=== PATIENT | female | born 1960 | race Caucasian/White ===

== ENCOUNTER → 2018-07-13 | Outpatient (CLI) | payer OTHER ==
[2018-07-13 09:22] LABS: BASO # 0.1 10^3/uL (0.0-0.2); BASO % 0.6 % (0.0-1.0); EOS # 0.1 10^3/uL (0.0-0.50); EOS % 1.2 % (0.0-3.0); HEMATOCRIT 40.1 % (36.0-47.0); HEMOGLOBIN 13.2 g/dl (12.0-15.5); IMMATURE GRANULOCYTE % 0.4 % (0-3.0); LYMPH # 1.6 10^3/uL (1.5-4.5); LYMPH % 16.6 % (24.0-44.0); MEAN CORPUSCULAR HEMOGLOBIN 30.3 pg (27.0-33.0); MEAN CORPUSCULAR HGB CONC 32.9 g/dl (32.0-36.5); MONO # 0.6 10^3/uL (0.0-0.8); MONO % 5.9 % (0.0-5.0); NEUTROPHILS % 75.3 % (36.0-66.0); PLATELET COUNT, AUTOMATED 273 10^3/uL (150-450); RED BLOOD COUNT 4.36 10^6/uL (4.00-5.40); RED CELL DISTRIBUTION WIDTH 15.3 % (11.5-14.5); WHITE BLOOD COUNT 9.3 10^3/uL (4.0-10.0)
[2018-07-13 09:38] LABS: ESTIMATED AVERAGE GLUCOSE 154 MG/DL (60-110)
[2018-07-13 09:48] LABS: ERYTHROCYTE SEDIMENTATION RATE 9 mm/hr (0-30)
[2018-07-13 10:35] LABS: ALBUMIN 3.8 GM/DL (3.2-5.2); ALBUMIN/GLOBULIN RATIO 1.12 (1.00-1.93); ALKALINE PHOSPHATASE 93 U/L (45-117); ALT/SGPT 38 U/L (12-78); ANION GAP 5 MEQ/L (8-16); AST/SGOT 118 U/L (7-37); BILIRUBIN,TOTAL 0.5 MG/DL (0.2-1.0); BLOOD UREA NITROGEN 14 MG/DL (7-18); CALCIUM LEVEL 8.4 MG/DL (8.5-10.1); CARBON DIOXIDE LEVEL 27 MEQ/L (21-32); CHLORIDE LEVEL 106 MEQ/L (98-107); CREATININE FOR GFR 0.63 MG/DL (0.55-1.30); GLOMERULAR FILTRATION RATE > 60.0 (>51); GLUCOSE, FASTING 141 MG/DL (70-100); POTASSIUM SERUM 4.6 MEQ/L (3.5-5.1); RHEUMATOID FACTOR QUANT < 10.0 IU/ML (<15.0); SODIUM LEVEL 138 MEQ/L (136-145); TOTAL PROTEIN 7.2 GM/DL (6.4-8.2)
[2018-07-13 10:57] LABS: FOLATE 16.7 NG/ML; TOTAL 25(OH) VITAMIN D 20.3 NG/ML (30.0-100.0); VITAMIN B12 LEVEL 391 PG/ML
[2018-07-18 09:18] LABS: DRVV SCREEN 39.5 SEC
[2018-07-18 09:30] LABS: PTT LUPUS TYPE ANTICOAG SCREEN 0.9 (0-1.2)
[2018-07-19 00:06] LABS: ANCA-ATYPICAL <1:20 titer (Neg:<1:20); ANTI DOUBLE STRAND-DNA AB 1 IU/mL (0-9); ANTINUCLEAR ANTIBODIES DIRECT Negative (Negative); CERULOPLASMIN 30.2 mg/dL (19.0-39.0); COPPER PLASMA 107 ug/dL (72-166); CYTOPLASMIC NEUTROP AB ANCA-C <1:20 titer (Neg:<1:20); LEAD BLOOD ADULT <1 ug/dL (0-4); Lyme Disease IgG/IgM Antibodie <0.91 ISR (0.00-0.90); Lyme Disease IgM Ab Quantitati <0.80 index (0.00-0.79); MERCURY LEVEL None Detected ug/L (0.0-14.9); PERINUCLEAR AB ANCA-P <1:20 titer (Neg:<1:20); SJOGREN'S ANTI SS-A <0.2 AI (0.0-0.9); SJOGREN'S ANTI SS-B <0.2 AI (0.0-0.9); VITAMIN B1 LEVEL WHOLE BLOOD 132.6 nmol/L (66.5-200.0); VITAMIN B6,PYRIDOXAL PHOSPHATE 7.2 ug/L (2.0-32.8); VITAMIN E(ALPHA TOCOPHEROL) 8.2 mg/L (7.0-25.1); VITAMIN E(GAMMA TOCOPHEROL) 1.9 mg/L (0.5-5.5)
== END ==
LOC: M LAB 08:13
DX: G62.9 Polyneuropathy, unspecified (principal)
CPT/HCPCS: 82525

== ENCOUNTER → 2018-07-18 | Outpatient (CLI) | payer OTHER | LOC: M RAD 06:59 | DX: Z12.31 Encounter for screening mammogram for malignant neoplasm of breast (principal) | CPT/HCPCS: 77067 ==

== ENCOUNTER → 2018-09-02 | Outpatient (CLI) | payer OTHER ==
[~2018-09-02] MED LIST: ABIL1TAB13 PO; ABIL2TAB PO; ANTA250T PO; BENZ200C70 PO; CYCL10TA PO; DEPA500T2 PO; Effexor XR PO; OXYC1TAB23 PO; PAXI20TA3 PO; PRED20TA PO; PRIL40CA PO; TRAZ-160 PO; TRAZ-163 PO; VENL37TA PO; VITA500047 PO; VITA500T53 PO; VITACHTA PO; [UNRECOGNIZED DRUG - OTHER] PO; caltrate PO
[2018-09-02 10:57] LABS: BLOOD UREA NITROGEN 10 MG/DL (7-18); CREATININE FOR GFR 0.75 MG/DL (0.55-1.30); GLOMERULAR FILTRATION RATE > 60.0 (>51)
== END ==
LOC: M LAB 09:29
PROVIDERS: ATTEND Psychiatry & Neurology Neurology
DX: N18.9 Chronic kidney disease, unspecified (principal)

== ENCOUNTER → 2019-02-17 | Outpatient (CLI) | payer OTHER ==
[~2019-02-17] MED LIST changes: -TRAZ-160 PO; +TRAZ-252 PO
[2019-02-17 10:23] LABS: HEMOGLOBIN A1c 8.1 %
[2019-02-17 10:26] LABS: BLOOD UREA NITROGEN 7 MG/DL (7-18); CALCIUM LEVEL 9.3 MG/DL (8.5-10.1); CARBON DIOXIDE LEVEL 31 MEQ/L (21-32); CHLORIDE LEVEL 106 MEQ/L (98-107); CREATININE FOR GFR 0.87 MG/DL (0.55-1.30); GLOMERULAR FILTRATION RATE > 60.0 (>51); GLUCOSE, FASTING 193 MG/DL (70-100); POTASSIUM SERUM 4.4 MEQ/L (3.5-5.1); SODIUM LEVEL 142 MEQ/L (136-145)
[2019-02-17 10:42] LABS: MAU/CREAT RATIO 44.1 MCG/MG (0.0-30.0)
== END ==
LOC: M LAB 09:24
PROVIDERS: ATTEND Family Medicine
DX: E11.9 Type 2 diabetes mellitus without complications (principal)

== ENCOUNTER → 2019-02-20 | Outpatient (CLI) | payer OTHER ==
--- NOTE | 2019-02-20 22:13 | REP ---
Clinical: Chronic cough . Comparison: 12/03/2015 . Technique: PA and lateral. Findings: The mediastinum and cardiac silhouette are normal. The lung griffin are clear and without acute consolidation, effusion, or pneumothorax. The skeletal structures are intact and normal. Impression: 1. No acute cardiopulmonary process. Electronically Signed by George Prater MD 02/20/2019 10:04 P
== END ==
LOC: M ADAMS 09:34
PROVIDERS: ATTEND Family Medicine
DX: R05 Cough (principal)

== ENCOUNTER → 2019-04-11 | Outpatient (REF) | payer OTHER ==
[2019-04-11 16:36] LABS: APPEARANCE, URINE CLEAR (CLEAR); BACTERIA, URINE AUTO NEGATIVE (NEGATIVE); BILIRUBIN, URINE AUTO NEGATIVE (NEGATIVE); BLOOD, URINE BLOOD NEGATIVE (NEGATIVE); COLOR, URINE YELLOW (YELLOW); GLUCOSE, URINE (UA) AUTO 3+ mg/dL (NEGATIVE); KETONE, URINE AUTO NEGATIVE (NEGATIVE); LEUKOCYTE ESTERASE, URINE AUTO NEGATIVE (NEGATIVE); NITRITE, URINE AUTO NEGATIVE (NEGATIVE); PROTEIN, URINE AUTO NEGATIVE (NEGATIVE); RBC, URINE AUTO 0 /HPF (0-3); SPECIFIC GRAVITY URINE AUTO 1.007 (1.002-1.035); SQUAMOUS EPITHELIAL CELL UR AU 1 /HPF (0-6); UROBILINOGEN, URINE AUTO 0.2 mg/dL (0.0-2.0); WBC, URINE AUTO 0 /HPF (0-3)
== END ==
LOC: M SFHCADAM 15:56
PROVIDERS: ATTEND Family Medicine
DX: R30.0 Dysuria (principal)

== ENCOUNTER → 2020-01-10 | Outpatient (CLI) | payer OTHER ==
[~2020-01-10] MED LIST changes: +CYCL-707 PO; -CYCL10TA PO; -TRAZ-163 PO; +TRAZ-257 PO
== END ==
LOC: M ADAMS 15:14
PROVIDERS: ATTEND Family Medicine
DX: M70.61 Trochanteric bursitis, right hip (principal)

== ENCOUNTER → 2020-09-01 | Outpatient (REF) | payer OTHER ==
[2020-09-01 14:02] LABS: BLOOD UREA NITROGEN 7 MG/DL (7-18); CALCIUM LEVEL 9.5 MG/DL (8.5-10.1); CARBON DIOXIDE LEVEL 28 MEQ/L (21-32); CHLORIDE LEVEL 98 MEQ/L (98-107); CREATININE FOR GFR 0.68 MG/DL (0.55-1.30); GLOMERULAR FILTRATION RATE > 60.0 (>51); GLUCOSE, FASTING 177 MG/DL (70-100); POTASSIUM SERUM 5.2 MEQ/L (3.5-5.1); SODIUM LEVEL 133 MEQ/L (136-145)
[2020-09-01 14:37] LABS: HEMOGLOBIN A1c 6.7 %
== END ==
LOC: M SFHCADAM 10:33
DX: E11.9 Type 2 diabetes mellitus without complications (principal)

== ENCOUNTER → 2020-11-13 | Outpatient (CLI) | payer OTHER, MEDICAID ==
[2020-11-13 13:58] LABS: HEMATOCRIT 38.5 % (36.0-47.0); HEMOGLOBIN 12.2 g/dl (12.0-15.5); MEAN CORPUSCULAR HEMOGLOBIN 27.9 pg (27.0-33.0); MEAN CORPUSCULAR HGB CONC 31.7 g/dl (32.0-36.5); MEAN CORPUSCULAR VOLUME 87.9 fl (80.0-96.0); PLATELET COUNT, AUTOMATED 285 10^3/uL (150-450); RED BLOOD COUNT 4.38 10^6/uL (4.00-5.40); WHITE BLOOD COUNT 7.5 10^3/uL (4.0-10.0)
[2020-11-13 14:10] LABS: ALBUMIN 3.7 GM/DL (3.2-5.2); BILIRUBIN,DIRECT 0.3 MG/DL (0.0-0.2); BILIRUBIN,TOTAL 0.4 MG/DL (0.2-1.0); CHOLESTEROL RISK RATIO 4.139 (<5); TOTAL PROTEIN 7.9 GM/DL (6.4-8.2); VALPROIC ACID (DEPAKOTE) 30.8 UG/ML (50.0-100.0)
== END ==
LOC: M PLALAB 11:46
PROVIDERS: ATTEND Psychiatry & Neurology Psychiatry
DX: F31.9 Bipolar disorder, unspecified (principal); F10.20 Alcohol dependence, uncomplicated; Z79.899 Other long term (current) drug therapy

== ENCOUNTER → 2021-01-22 | Outpatient (REF) | payer OTHER ==
[2021-01-22 13:23] LABS: HEMATOCRIT 37.9 % (36.0-47.0); MEAN CORPUSCULAR HEMOGLOBIN 27.1 pg (27.0-33.0); MEAN CORPUSCULAR HGB CONC 31.7 g/dl (32.0-36.5); MEAN CORPUSCULAR VOLUME 85.7 fl (80.0-96.0); PLATELET COUNT, AUTOMATED 251 10^3/uL (150-450); RED BLOOD COUNT 4.42 10^6/uL (4.00-5.40); WHITE BLOOD COUNT 5.7 10^3/uL (4.0-10.0)
[2021-01-22 16:03] LABS: ALT/SGPT 14 U/L (12-78); BILIRUBIN,TOTAL 0.4 MG/DL (0.2-1.0); BLOOD UREA NITROGEN 4 MG/DL (7-18); CALCIUM LEVEL 8.8 MG/DL (8.5-10.1); CARBON DIOXIDE LEVEL 25 MEQ/L (21-32); CHLORIDE LEVEL 102 MEQ/L (98-107); CHOLESTEROL LEVEL 174 MG/DL (<200); CHOLESTEROL RISK RATIO 3.052 (<5); CORTISOL AM 12.3 UG/DL (4.3-22.4); CREATININE FOR GFR 0.53 MG/DL (0.55-1.30); FERRITIN 18 NG/ML (8-252); FOLATE 9.9 NG/ML (>5.4); GLOMERULAR FILTRATION RATE > 60.0 (>51); GLUCOSE, FASTING 101 MG/DL (70-100); HDL CHOLESTEROL 57 MG/DL (>40); LDL CHOLESTEROL 94 MG/DL (<100); NON-HDL-C 117 MG/DL; POTASSIUM SERUM 4.7 MEQ/L (3.5-5.1); SODIUM LEVEL 137 MEQ/L (136-145); TOTAL 25(OH) VITAMIN D 38.2 NG/ML (30.0-100.0); TOTAL PROTEIN 7.9 GM/DL (6.4-8.2); TRIGLYCERIDES LEVEL 117 MG/DL (<150); VITAMIN B12 LEVEL 456 PG/ML (247-911)
[2021-01-22 17:51] LABS: HEMOGLOBIN A1c 6.3 %
== END ==
LOC: M SFHCADAM 09:12
PROVIDERS: ATTEND Family Medicine
DX: E11.9 Type 2 diabetes mellitus without complications (principal); E27.8 Other specified disorders of adrenal gland; Z98.84 Bariatric surgery status; E55.9 Vitamin D deficiency, unspecified

== ENCOUNTER → 2021-04-29 | Outpatient (CLI) | payer OTHER, SELFPAY ==
[~2021-04-29] MED LIST changes: +E-Z-GAS II EFFERVESCENT PACKET (SODIUM BICARB./CITRIC ACID/SIMETHICONE) As Ordered ONE; +E-Z-HD 98% w/w 340GM SUSP BTL As Ordered ONE; +E-Z-PAQUE 96% w/w SUSP 176GM BTL As Ordered ONE
--- NOTE | 2021-04-29 17:16 | REP ---
INDICATION: ASPIRATION INTO RESPIRATORY TRACT. COMPARISON: None TECHNIQUE: This procedure was performed by Becky Thornton [facility], under the direct supervision of Dr. Gongora. Images were reviewed with Dr. Gongora prior to dictation. Liquid barium and gas producing crystals were given in the erect position, as well as liquid barium in the prone oblique position in order to perform a double contrast esophagram examination. FINDINGS: A single view PA chest x-ray is submitted as a die sizer film. The superior mediastinal structures are midline. The heart size is within normal limits. The lungs are clear. The oral and pharyngeal stages of deglutition were unremarkable. Esophageal transport is prompt and efficient and there is no evidence of esophagitis, stricture, or mucosal ring. During the exam to and fro motility was visualized multiple times. There is no evidence of a hiatal hernia. Gastroesophageal reflux was visualized to the thoracic inlet.. IMPRESSION: 1. Esophageal dysmotility as described above. 2. Gastroesophageal reflux to the thoracic inlet. 0.4 minutes of fluoroscopy time was utilized for this procedure. Some fluoroscopic images are performed with last image hold technology. These images require no additional radiation. <Electronically signed by Becky Thornton > 04/29/21 [id number] <Electronically signed by Vladimir Gongora > 04/29/21 1719
== END ==
LOC: M RAD 08:23
PROVIDERS: ATTEND Family Medicine
DX: T17.908A Unspecified foreign body in respiratory tract, part unspecified causing other injury, initial encounter (principal)

== ENCOUNTER → 2021-05-09 | Outpatient (CLI) | payer OTHER ==
[~2021-05-09] MED LIST changes: -E-Z-GAS II EFFERVESCENT PACKET (SODIUM BICARB./CITRIC ACID/SIMETHICONE) As Ordered ONE; -E-Z-HD 98% w/w 340GM SUSP BTL As Ordered ONE; -E-Z-PAQUE 96% w/w SUSP 176GM BTL As Ordered ONE
[2021-05-09 09:05] LABS: HEMATOCRIT 35.1 % (36.0-47.0); HEMOGLOBIN 11.3 g/dl (12.0-15.5); MEAN CORPUSCULAR HGB CONC 32.2 g/dl (32.0-36.5); MEAN CORPUSCULAR VOLUME 80.9 fl (80.0-96.0); PLATELET COUNT, AUTOMATED 270 10^3/uL (150-450); RED BLOOD COUNT 4.34 10^6/uL (4.00-5.40); WHITE BLOOD COUNT 6.6 10^3/uL (4.0-10.0)
[2021-05-09 09:25] LABS: HEMOGLOBIN A1c 6.3 %
[2021-05-09 09:26] LABS: ALBUMIN 3.3 GM/DL (3.2-5.2); ALT/SGPT 24 U/L (12-78); BILIRUBIN,TOTAL 0.6 MG/DL (0.2-1.0); BLOOD UREA NITROGEN 2 MG/DL (7-18); CALCIUM LEVEL 8.5 MG/DL (8.5-10.1); CARBON DIOXIDE LEVEL 28 MEQ/L (21-32); CHLORIDE LEVEL 99 MEQ/L (98-107); CREATININE FOR GFR 0.43 MG/DL (0.55-1.30); GLOMERULAR FILTRATION RATE > 60.0 (>51); GLUCOSE, FASTING 151 MG/DL (70-100); POTASSIUM SERUM 4.2 MEQ/L (3.5-5.1); SODIUM LEVEL 134 MEQ/L (136-145); TOTAL PROTEIN 7.6 GM/DL (6.4-8.2)
== END ==
LOC: M LAB 08:30
PROVIDERS: ATTEND Family Medicine
DX: E11.9 Type 2 diabetes mellitus without complications (principal); T17.908A Unspecified foreign body in respiratory tract, part unspecified causing other injury, initial encounter; Y92.89 Other specified places as the place of occurrence of the external cause; Z79.899 Other long term (current) drug therapy

== ENCOUNTER → 2021-05-11 | Outpatient (CLI) | payer OTHER ==
[~2021-05-11] MED LIST changes: +ISOVUE-370 76% 100ML VIAL ONE
--- NOTE | 2021-05-14 04:44 | REP ---
INDICATION: ADENOMA LT ADRENAL GLAND COMPARISON: Outside examination dated 11/06/2020 TECHNIQUE: Axial contrast-enhanced images of the abdomen using 75 cc Isovue 370 intravenous contrast material with delayed imaging. Coronal and sagittal reformations obtained. This CT examination was performed using the following dose reduction techniques: Automated exposure control, adjustment of mA and/or kv according to the patient's size, and use of iterative reconstruction technique. FINDINGS: Lung bases are clear. Visualized heart and pericardium normal. Liver demonstrates diffuse fatty infiltration without focal hepatic lesion identified. Spleen, pancreas, gallbladder, right adrenal gland and bilateral kidneys are normal. Incidental 1 cm right renal cyst is again suspected and appears slightly increased in size when compared with 2014 CT examination. 1 cm left adrenal lesion likely represents adenoma. Evidence for prior gastric bypass surgery. Visualized portions of the small and large bowel are grossly unremarkable. Small fat containing periumbilical hernia identified. IMPRESSION: No acute abdominopelvic pathology appreciated. Presumed 1 cm left adrenal adenoma. 1 cm right renal hypodensity likely cyst may be confirmed by ultrasound. <Electronically signed by George Prater > 05/14/21 [id number]
== END ==
LOC: M PLAIMG 08:44
PROVIDERS: ATTEND Family Medicine
DX: D35.02 Benign neoplasm of left adrenal gland (principal)
CPT/HCPCS: 74160; Q9967

== ENCOUNTER → 2021-11-10 | Outpatient (CLI) | payer MEDICAID, OTHER ==
[~2021-11-10] MED LIST changes: -ISOVUE-370 76% 100ML VIAL ONE
[2021-11-10 13:43] LABS: BASO # 0.1 10^3/uL (0.0-0.2); BASO % 0.9 % (0.0-1.0); EOS # 0.1 10^3/uL (0.0-0.5); EOS % 2.1 % (0.0-3.0); HEMATOCRIT 35.2 % (36.0-47.0); HEMOGLOBIN 10.7 g/dl (12.0-15.5); LYMPH # 1.7 10^3/uL (1.5-5.0); LYMPH % 24.9 % (24.0-44.0); MEAN CORPUSCULAR HEMOGLOBIN 24.9 pg (27.0-33.0); MEAN CORPUSCULAR HGB CONC 30.4 g/dl (32.0-36.5); MEAN CORPUSCULAR VOLUME 81.9 fl (80.0-96.0); MONO # 0.8 10^3/uL (0.0-0.8); MONO % 12.4 % (2.0-8.0); NEUTROPHILS % 59.3 % (36.0-66.0); PLATELET COUNT, AUTOMATED 254 10^3/uL (150-450); WHITE BLOOD COUNT 6.8 10^3/uL (4.0-10.0)
[2021-11-10 14:33] LABS: ERYTHROCYTE SEDIMENTATION RATE 37 mm/hr (0-30)
[2021-11-10 14:34] LABS: ALBUMIN 3.6 GM/DL (3.2-5.2); ALT/SGPT 17 U/L (12-78); BILIRUBIN,TOTAL 1.2 MG/DL (0.2-1.0); BLOOD UREA NITROGEN 7 MG/DL (7-18); CALCIUM LEVEL 8.8 MG/DL (8.5-10.1); CARBON DIOXIDE LEVEL 28 MEQ/L (21-32); CHLORIDE LEVEL 103 MEQ/L (98-107); CREATININE FOR GFR 0.54 MG/DL (0.55-1.30); GLOMERULAR FILTRATION RATE > 60.0 (>51); GLUCOSE, FASTING 125 MG/DL (70-100); POTASSIUM SERUM 3.9 MEQ/L (3.5-5.1); RHEUMATOID FACTOR QUANT < 10.0 IU/ML (<15.0); SODIUM LEVEL 135 MEQ/L (136-145); TOTAL 25(OH) VITAMIN D 27.7 NG/ML (30.0-100.0); TOTAL PROTEIN 7.7 GM/DL (6.4-8.2); VITAMIN B12 LEVEL 377 PG/ML
[2021-11-10 14:50] LABS: HEMOGLOBIN A1c 5.5 %
[2021-11-13 13:04] LABS: ALBUMIN 3.96 GM/DL (3.29-5.55); ALBUMIN % 51.4 % (55.8-66.1); ALPHA-1-GLOBULIN % 3.7 % (2.9-4.9); ALPHA-1-GLOBULINS 0.28 GM/DL (0.17-0.41); ALPHA-2-GLOBULINS 0.89 GM/DL (0.42-0.99); ALPHA-2-GLOBULINS % 11.5 % (7.1-11.8); BETA-1-GLOBULINS 0.65 GM/DL (0.28-0.60)
[2021-11-13 13:05] LABS: BETA-1-GLOBULINS % 8.4 % (4.7-7.2); BETA-2-GLOBULINS 0.56 GM/DL (0.19-0.55); BETA-2-GLOBULINS % 7.3 % (3.2-6.5); GAMMA GLOBULIN % 17.7 % (11.1-18.8); GAMMA GLOBULINS 1.36 GM/DL (0.65-1.58)
== END ==
LOC: M PLALAB 09:44
PROVIDERS: ATTEND Psychiatry & Neurology Neurology
DX: R51.9 Headache, unspecified (principal); G62.9 Polyneuropathy, unspecified

== ENCOUNTER → 2021-11-10 | Outpatient (CLI) | payer MEDICAID, OTHER ==
[2021-11-10 14:23] LABS: ALBUMIN 3.7 GM/DL (3.2-5.2); ALT/SGPT 17 U/L (12-78); BILIRUBIN,TOTAL 0.9 MG/DL (0.2-1.0); BLOOD UREA NITROGEN 8 MG/DL (7-18); CARBON DIOXIDE LEVEL 28 MEQ/L (21-32); CHLORIDE LEVEL 103 MEQ/L (98-107); CREATININE FOR GFR 0.55 MG/DL (0.55-1.30); GLOMERULAR FILTRATION RATE > 60.0 (>51); GLUCOSE, FASTING 126 MG/DL (70-100); SODIUM LEVEL 136 MEQ/L (136-145); TOTAL PROTEIN 7.7 GM/DL (6.4-8.2)
[2021-11-10 14:51] LABS: HEMOGLOBIN A1c 5.6 %
== END ==
LOC: M PLALAB 09:39
PROVIDERS: ATTEND Family Medicine
DX: E11.9 Type 2 diabetes mellitus without complications (principal); F10.20 Alcohol dependence, uncomplicated

== ENCOUNTER 2022-01-19 08:55 | Emergency (ER) | payer MEDICAID, OTHER ==
[~2022-01-19] VITALS: Ht 162.6 cm; Wt 69.1 kg
[2022-01-19 08:56] VITALS: BP 169/94
[2022-01-19] MEDS ORDERED: NS 1,000 ML IV ONE (10:55)
== END 2022-01-19 10:50 | disposition left against medical advice (07) ==
LOC: M ED 08:55
DX: Z53.21 Procedure and treatment not carried out due to patient leaving prior to being seen by health care provider (principal)

== ENCOUNTER → 2022-02-24 | Outpatient (REF) | payer OTHER ==
[2022-02-24 13:28] LABS: HEMATOCRIT 33.8 % (36.0-47.0); HEMOGLOBIN 10.4 g/dl (12.0-15.5); MEAN CORPUSCULAR HEMOGLOBIN 25.2 pg (27.0-33.0); MEAN CORPUSCULAR HGB CONC 30.8 g/dl (32.0-36.5); MEAN CORPUSCULAR VOLUME 81.8 fl (80.0-96.0); PLATELET COUNT, AUTOMATED 188 10^3/uL (150-450); RED BLOOD COUNT 4.13 10^6/uL (4.00-5.40); WHITE BLOOD COUNT 5.8 10^3/uL (4.0-10.0)
[2022-02-24 13:42] LABS: INR 1.14
[2022-02-24 15:54] LABS: ALBUMIN 3.8 GM/DL (3.2-5.2); ALT/SGPT 23 U/L (12-78); BLOOD UREA NITROGEN 6 MG/DL (7-18); CALCIUM LEVEL 8.8 MG/DL (8.5-10.1); CARBON DIOXIDE LEVEL 26 MEQ/L (21-32); CHLORIDE LEVEL 101 MEQ/L (98-107); CREATININE FOR GFR 0.63 MG/DL (0.55-1.30); FREE T4 1.24 NG/DL (0.76-1.46); GLOMERULAR FILTRATION RATE > 60.0 (>51); GLUCOSE, FASTING 126 MG/DL (70-100); SODIUM LEVEL 134 MEQ/L (136-145)
[2022-02-24 22:00] LABS: HEMOGLOBIN A1c 5.6 %
== END ==
LOC: M SFHCADAM 08:45
PROVIDERS: ATTEND Family Medicine
DX: R53.83 Other fatigue (principal); U09.9 Post COVID-19 condition, unspecified; R25.1 Tremor, unspecified; E11.9 Type 2 diabetes mellitus without complications; K70.0 Alcoholic fatty liver; F10.251 Alcohol dependence with alcohol-induced psychotic disorder with hallucinations

== ENCOUNTER 2022-04-04 15:17 | Inpatient (IN) | payer OTHER, MEDICAID ==
[2022-04-04] VITALS (33 sets, daily range): BP systolic 85–116; BP diastolic 46–61; O2SAT 94
[~2022-04-04] VITALS: Ht 157.5 cm; Wt 80.2 kg
[2022-04-04] MEDS ORDERED: ETOMIDATE INJ 20MG/10ML VIAL ONE (15:18)
[2022-04-04] MEDS ORDERED: ROCURONIUM BROMIDE 50 MG/5 ML VIAL ONE (15:18)
[2022-04-04] MEDS ORDERED: NS 1,000 ML IV SCH (15:30)
[2022-04-04 15:46] LABS: BASO # 0.1 10^3/uL (0.0-0.2); BASO % 0.7 % (0.0-1.0); EOS # 0.1 10^3/uL (0.0-0.5); EOS % 0.8 % (0.0-3.0); HEMATOCRIT 32.9 % (36.0-47.0); HEMOGLOBIN 10.2 g/dl (12.0-15.5); LYMPH # 3.3 10^3/uL (1.5-5.0); LYMPH % 37.2 % (24.0-44.0); MEAN CORPUSCULAR HEMOGLOBIN 24.9 pg (27.0-33.0); MEAN CORPUSCULAR VOLUME 80.4 fl (80.0-96.0); MONO # 0.8 10^3/uL (0.0-0.8); MONO % 9.5 % (2.0-8.0); NEUTROPHILS # 4.6 10^3/uL (1.5-8.5); NEUTROPHILS % 51.3 % (36.0-66.0); PLATELET COUNT, AUTOMATED 189 10^3/uL (150-450); RED BLOOD COUNT 4.09 10^6/uL (4.00-5.40); WHITE BLOOD COUNT 8.9 10^3/uL (4.0-10.0)
[2022-04-04] MEDS ORDERED: ETOMIDATE INJ 20MG/10ML VIAL IV ONE (15:55)
[2022-04-04] MEDS ORDERED: ROCURONIUM BROMIDE 50 MG/5 ML VIAL IV ONE (15:55)
[2022-04-04] MEDS ORDERED: propofoL 1,000 MG in IV 1 EA IV SCH ×2 (16:05→18:15)
[2022-04-04] MEDS ORDERED: PROPOFOL 1,000 MG/100 ML VIAL As Ordered ONE (16:06)
[2022-04-04 16:22] LABS: ABG O2 SATURATION 99.3 % (95.0-99.0); ABG PARTIAL PRESSURE CO2 45.3 mmHg (35.0-45.0); ABG PARTIAL PRESSURE O2 265.8 mmHg (75.0-100.0); ABG TOTAL CO2 24.4 MEQ/L (22.0-29.0); ABG pH (ARTERIAL) 7.323 UNITS (7.350-7.450)
[2022-04-04 16:28] LABS: ACETAMINOPHEN LEVEL < 2.0 UG/ML (10.0-30.0); ALBUMIN 3.8 GM/DL (3.2-5.2); ALT/SGPT 16 U/L (12-78); BILIRUBIN,DIRECT 0.4 MG/DL (0.0-0.2); BILIRUBIN,TOTAL 1.3 MG/DL (0.2-1.0); BLOOD UREA NITROGEN 4 MG/DL (7-18); CALCIUM LEVEL 8.5 MG/DL (8.5-10.1); CARBON DIOXIDE LEVEL 25 MEQ/L (21-32); CHLORIDE LEVEL 101 MEQ/L (98-107); CREATININE FOR GFR 0.43 MG/DL (0.55-1.30); ETHYL ALCOHOL (ETHANOL) 0.261 % (0.000-0.010); GLOMERULAR FILTRATION RATE > 60.0 (>51); GLUCOSE, FASTING 121 MG/DL (70-100); POTASSIUM SERUM 4.1 MEQ/L (3.5-5.1); SALICYLATE LEVEL 3.2 MG/DL (5.0-30.0); SODIUM LEVEL 134 MEQ/L (136-145); TOTAL PROTEIN 7.7 GM/DL (6.4-8.2)
[2022-04-04 17:04] LABS: AMPHETAMINES LEVEL URINE NEGATIVE (NEGATIVE); BARBITURATES URINE NEGATIVE (NEGATIVE); BENZODIAZEPINES URINE NEGATIVE (NEGATIVE); CANNABINOIDS URINE NEGATIVE (NEGATIVE); COCAINE METABOLITE URINE NEGATIVE (NEGATIVE); METHADONE URINE NEGATIVE (NEGATIVE); OPIATES URINE NEGATIVE (NEGATIVE); PHENCYCLIDINE URINE NEGATIVE (NEGATIVE)
[2022-04-04] MEDS ORDERED: fentaNYL 100 MCG/2 ML INJECTION IV PRN (17:20)
[2022-04-04] MEDS ORDERED: FOLIC ACID 1 MG in NS 50 ML IV ONE (17:20)
[2022-04-04] MEDS ORDERED: THIAMINE 200MG 2ML VIAL IV ONE (17:20)
[2022-04-04] MEDS ORDERED: LEVALBUTEROL 1.25 MG/0.5 ML CONCENTRATE NEB NEB PRN (17:20)
[2022-04-04 17:27] LABS: RSV AMPLIFICATION NEGATIVE (NEGATIVE)
[2022-04-04] MEDS ORDERED: MIDAZOLAM DRIP LOCK BOX KEY 1 EACH EA XX PRN (17:55)
[2022-04-04] MEDS ORDERED: MAGNESIUM SULFATE IN WATER 2 GM in IV 1 EA IV STA ×2 (17:57)
[2022-04-04] MEDS ORDERED: MAGNESIUM SULFATE IN WATER 2GM 50ML BAG (40MG/ML) (FOR ER ONLY) As Ordered ONE (18:07)
[2022-04-04] MEDS ORDERED: MULTIVITAMIN -ADULT INJECTION 10 ML, FOLIC ACID 1 MG, THIAMINE INJection 100 MG in NS 1... IV SCH (19:00)
[2022-04-04] MEDS ORDERED: LR 1,000 ML IV SCH ×2 (19:00→20:30)
[2022-04-04] MEDS: NOREPINEPHRINE/DEXTROSE 8 MG in IV 1 EA IV SCH (19:16)
[2022-04-04] MEDS ORDERED: DULA3PEN SQ (19:27)
[2022-04-04] MEDS ORDERED: HYDR-3363 PO (19:27)
[2022-04-04] MEDS ORDERED: OMEP40CA5 PO (19:27)
[2022-04-04] MEDS ORDERED: QUET50TA4 PO (19:27)
[2022-04-04] MEDS ORDERED: VENL150C43 PO (19:27)
[2022-04-04] MEDS ORDERED: PATIENT COMMENT (19:27)
[2022-04-04] MEDS ORDERED: VENL75CA47 PO (19:27)
[2022-04-04] MEDS ORDERED: VIVI380I INJ (19:27)
[2022-04-04] MEDS ORDERED: LR 1,000 ML IV ONE ×2 (19:30→21:50)
[2022-04-04] MEDS ORDERED: HOME MED LIST COMPLETE! XX SCH (19:30)
[2022-04-04 20:41] LABS: ALBUMIN 3.2 GM/DL (3.2-5.2); ALT/SGPT 12 U/L (12-78); BILIRUBIN,TOTAL 4.3 MG/DL (0.2-1.0); BLOOD UREA NITROGEN 5 MG/DL (7-18); CALCIUM LEVEL 7.4 MG/DL (8.5-10.1); CARBON DIOXIDE LEVEL 25 MEQ/L (21-32); CHLORIDE LEVEL 103 MEQ/L (98-107); CREATININE FOR GFR 0.67 MG/DL (0.55-1.30); GLOMERULAR FILTRATION RATE > 60.0 (>51); GLUCOSE, FASTING 178 MG/DL (70-100); POTASSIUM SERUM 3.6 MEQ/L (3.5-5.1); SODIUM LEVEL 138 MEQ/L (136-145); TOTAL PROTEIN 6.5 GM/DL (6.4-8.2)
[2022-04-04] MEDS ORDERED: VANCOMYCIN HCL 750 MG, VIAL MATE ADAPTER 1 EACH in D5W 250 ML IV ONE ×2 (21:00→22:00)
[2022-04-04 21:09] LABS: ABG BASE EXCESS -3.7 (-2.0-2.0); ABG HCO3 22.4 MEQ/L (22.0-26.0); ABG O2 SATURATION 98.4 % (95.0-99.0); ABG PARTIAL PRESSURE CO2 45.7 mmHg (35.0-45.0); ABG PARTIAL PRESSURE O2 138.2 mmHg (75.0-100.0); ABG STANDARD HCO3 21.4 MEQ/L (22.0-26.0); ABG TOTAL CO2 23.8 MEQ/L (22.0-29.0); ABG pH (ARTERIAL) 7.309 UNITS (7.350-7.450)
[2022-04-04] MEDS: PANTOPRAZOLE 40MG VIAL IV SCH (22:56)
[2022-04-04] MEDS: CHLORHEXIDINE GLUCONATE 0.12 % 15ML UDC (PERIDEX ORAL RINSE) MT SCH (22:57)
[2022-04-04] MEDS: ENOXAPARIN 40MG/0.4ML SYRINGE (J1650 PER 10MG) SC SCH (22:57)
[2022-04-04] MEDS ORDERED: SODIUM BICARBONATE 150 MEQ in D5W 1,000 ML IV SCH (23:00)
[2022-04-04] MEDS ORDERED: CEFEPIME HCL 2 GM in D5W MINI-BAG PLUS 50 ML IV SCH (23:00)
[2022-04-04] MEDS: MIDAZOLAM INJ 2MG/2ML VIAL (J2250 PER 1MG) IV PRN (23:04)
[2022-04-04] MEDS: MIDAZOLAM HCL 100 MG in IV 1 EA IV SCH (23:11)
[2022-04-05] VITALS (74 sets, daily range): BP systolic 96–138; BP diastolic 53–78
[2022-04-05] MEDS: MIDAZOLAM INJ 2MG/2ML VIAL (J2250 PER 1MG) IV PRN ×8 (01:22→21:40)
[2022-04-05 04:03] LABS: HEMATOCRIT 24.4 % (36.0-47.0); MEAN CORPUSCULAR HEMOGLOBIN 25.4 pg (27.0-33.0); MEAN CORPUSCULAR HGB CONC 31.6 g/dl (32.0-36.5); MEAN CORPUSCULAR VOLUME 80.5 fl (80.0-96.0); PLATELET COUNT, AUTOMATED 135 10^3/uL (150-450); RED BLOOD COUNT 3.03 10^6/uL (4.00-5.40); WHITE BLOOD COUNT 6.4 10^3/uL (4.0-10.0)
[2022-04-05 04:05] LABS: HEMOGLOBIN 7.7 g/dl (12.0-15.5)
[2022-04-05 04:55] LABS: ALBUMIN 2.9 GM/DL (3.2-5.2); BILIRUBIN,TOTAL 7.3 MG/DL (0.2-1.0); CALCIUM LEVEL 7.1 MG/DL (8.5-10.1); CREATININE FOR GFR 1.02 MG/DL (0.55-1.30); MAGNESIUM LEVEL 1.8 MG/DL (1.8-2.4); POTASSIUM SERUM 3.7 MEQ/L (3.5-5.1); TOTAL PROTEIN 5.9 GM/DL (6.4-8.2)
[2022-04-05] MEDS ORDERED: MAG SULF 1GM/100ML (MAG RUN) 1 GM in IV 1 EA IV ONE (05:35)
[2022-04-05 06:03] LABS: ABG BASE EXCESS -0.6 (-2.0-2.0); ABG HCO3 23.6 MEQ/L (22.0-26.0); ABG O2 SATURATION 95.3 % (95.0-99.0); ABG PARTIAL PRESSURE CO2 37.2 mmHg (35.0-45.0); ABG STANDARD HCO3 23.9 MEQ/L (22.0-26.0); ABG TOTAL CO2 24.8 MEQ/L (22.0-29.0); ABG pH (ARTERIAL) 7.421 UNITS (7.350-7.450)
[2022-04-05] MEDS: KCL 10MEQ/100ML SWI (KRUN) 10 MEQ in IV 1 EA IV SCH ×3 (06:40→08:57)
[2022-04-05] MEDS ORDERED: VANCOMYCIN HCL 1,000 MG, VIAL MATE ADAPTER 1 EACH in D5W 250 ML IV SCH (08:00)
[2022-04-05] MEDS: NOREPINEPHRINE/DEXTROSE 8 MG in IV 1 EA IV SCH (08:01)
[2022-04-05] MEDS: PIPERACILLIN/TAZOBACTAM SOD 4.5 GM in D5W MINI-BAG PLUS 50 ML IV SCH ×3 (08:05→20:04)
[2022-04-05] MEDS: PANTOPRAZOLE 40MG VIAL IV SCH (08:06)
[2022-04-05 08:16] LABS: INR 1.3; PROTHROMBIN TIME 16.6 SECONDS (12.7-14.5)
[2022-04-05] MEDS ORDERED: MVI -ADULT INJECTION 10ML VIAL IV SCH (09:00)
[2022-04-05] MEDS ORDERED: VANCOMYCIN HCL 750 MG, VIAL MATE ADAPTER 1 EACH in D5W 250 ML IV SCH ×2 (09:00→10:00)
[2022-04-05] MEDS: CHLORHEXIDINE GLUCONATE 0.12 % 15ML UDC (PERIDEX ORAL RINSE) MT SCH ×2 (09:19→20:03)
[2022-04-05] MEDS: LR 1,000 ML IV SCH ×2 (09:21→21:45)
[2022-04-05] MEDS: MAG SULF 1GM/100ML (MAG RUN) 1 GM in IV 1 EA IV SCH ×2 (09:57→10:59)
[2022-04-05 12:11] LABS: HEMATOCRIT 24.3 % (36.0-47.0); HEMOGLOBIN 7.8 g/dl (12.0-15.5); MEAN CORPUSCULAR HEMOGLOBIN 25.5 pg (27.0-33.0); MEAN CORPUSCULAR HGB CONC 32.1 g/dl (32.0-36.5); MEAN CORPUSCULAR VOLUME 79.4 fl (80.0-96.0); PLATELET COUNT, AUTOMATED 125 10^3/uL (150-450); RED BLOOD COUNT 3.06 10^6/uL (4.00-5.40); WHITE BLOOD COUNT 4.3 10^3/uL (4.0-10.0)
[2022-04-05] MEDS ORDERED: DEXTROSE 50% 50 ML SYRINGE IV PRN (13:15)
[2022-04-05] MEDS ORDERED: GLUCOSE 4GM CHEW TABLET PO PRN (13:15)
[2022-04-05] MEDS ORDERED: GLUCAGON INJ 1MG VIAL SC PRN (13:15)
[2022-04-05] MEDS ORDERED: FENTANYL DRIP LOCK BOX KEY 1 EACH XX PRN (16:55)
[2022-04-05] MEDS: fentaNYL CITRATE/NaCl 1,000 MCG in IV 1 EA IV SCH (17:08)
[2022-04-05] MEDS: INSULIN LISPRO (NovoLOG) PER UNIT SC SCH ×2 (18:00→23:40)
[2022-04-05] MEDS: MIDAZOLAM HCL 100 MG in IV 1 EA IV SCH (18:44)
[2022-04-05] MEDS: ENOXAPARIN 40MG/0.4ML SYRINGE (J1650 PER 10MG) SC SCH (20:04)
[2022-04-06] VITALS (33 sets, daily range): BP systolic 79–148; BP diastolic 51–89
[2022-04-06] MEDS: PIPERACILLIN/TAZOBACTAM SOD 4.5 GM in D5W MINI-BAG PLUS 50 ML IV SCH ×2 (01:41→08:37)
[2022-04-06] MEDS: MIDAZOLAM INJ 2MG/2ML VIAL (J2250 PER 1MG) IV PRN ×2 (02:32→05:47)
[2022-04-06 05:46] LABS: ABG BASE EXCESS 2.7 (-2.0-2.0); ABG HCO3 27.1 MEQ/L (22.0-26.0); ABG O2 SATURATION 95.9 % (95.0-99.0); ABG PARTIAL PRESSURE CO2 40.6 mmHg (35.0-45.0); ABG PARTIAL PRESSURE O2 82.6 mmHg (75.0-100.0); ABG STANDARD HCO3 26.9 MEQ/L (22.0-26.0); ABG TOTAL CO2 28.3 MEQ/L (22.0-29.0); ABG pH (ARTERIAL) 7.442 UNITS (7.350-7.450)
[2022-04-06] MEDS: INSULIN LISPRO (NovoLOG) PER UNIT SC SCH ×4 (06:00→20:30)
[2022-04-06 07:04] LABS: HEMATOCRIT 25.9 % (36.0-47.0); HEMOGLOBIN 8.2 g/dl (12.0-15.5); MEAN CORPUSCULAR HEMOGLOBIN 25.3 pg (27.0-33.0); MEAN CORPUSCULAR HGB CONC 31.7 g/dl (32.0-36.5); MEAN CORPUSCULAR VOLUME 79.9 fl (80.0-96.0); PLATELET COUNT, AUTOMATED 125 10^3/uL (150-450); RED BLOOD COUNT 3.24 10^6/uL (4.00-5.40); WHITE BLOOD COUNT 4.3 10^3/uL (4.0-10.0)
[2022-04-06] MEDS: LR 1,000 ML IV SCH ×2 (07:13→21:29)
[2022-04-06] MEDS: fentaNYL CITRATE/NaCl 1,000 MCG in IV 1 EA IV SCH (07:14)
[2022-04-06 07:42] LABS: ALBUMIN 2.5 GM/DL (3.2-5.2); BILIRUBIN,TOTAL 3.8 MG/DL (0.2-1.0); CALCIUM LEVEL 7.3 MG/DL (8.5-10.1); CREATININE FOR GFR 1.57 MG/DL (0.55-1.30); GLOMERULAR FILTRATION RATE 35.9 (>51); MAGNESIUM LEVEL 2.8 MG/DL (1.8-2.4); POTASSIUM SERUM 3.2 MEQ/L (3.5-5.1); TOTAL PROTEIN 5.7 GM/DL (6.4-8.2)
[2022-04-06] MEDS ORDERED: dexmedeTOMidine 200 MCG in IV 1 EA IV SCH (07:55)
[2022-04-06] MEDS: PANTOPRAZOLE 40MG VIAL IV SCH (08:37)
[2022-04-06] MEDS: KCL 20MEQ IN 100ML SWI (KRUN) 20 MEQ in IV 1 EA IV SCH ×4 (08:37→09:43)
[2022-04-06] MEDS: CHLORHEXIDINE GLUCONATE 0.12 % 15ML UDC (PERIDEX ORAL RINSE) MT SCH ×2 (08:50→21:29)
[2022-04-06 11:33] LABS: ABG BASE EXCESS 0.5 (-2.0-2.0); ABG HCO3 25.5 MEQ/L (22.0-26.0); ABG O2 SATURATION 94.2 % (95.0-99.0); ABG PARTIAL PRESSURE CO2 42.9 mmHg (35.0-45.0); ABG PARTIAL PRESSURE O2 79.1 mmHg (75.0-100.0); ABG STANDARD HCO3 24.9 MEQ/L (22.0-26.0); ABG TOTAL CO2 26.8 MEQ/L (22.0-29.0); ABG pH (ARTERIAL) 7.392 UNITS (7.350-7.450)
[2022-04-06] MEDS ORDERED: LORazepam 2 MG TAB PO PRN (12:15)
[2022-04-06] MEDS: THIAMINE 100 MG TAB PO SCH ×2 (14:02→21:13)
[2022-04-06] MEDS: PIPERACILLIN/TAZOBACTAM SOD 3.375 GM in D5W MINI-BAG PLUS 50 ML IV SCH ×2 (14:02→21:12)
[2022-04-06 15:05] LABS: CALCIUM LEVEL 7.8 MG/DL (8.5-10.1); CREATININE FOR GFR 1.52 MG/DL (0.55-1.30); GLOMERULAR FILTRATION RATE 37.3 (>51); POTASSIUM SERUM 3.8 MEQ/L (3.5-5.1)
[2022-04-06] MEDS: OMEPRAZOLE 20MG CAP PO SCH (21:13)
[2022-04-06] MEDS: ENOXAPARIN 40MG/0.4ML SYRINGE (J1650 PER 10MG) SC SCH (21:13)
[2022-04-06] MEDS ORDERED: LORazepam 0.5 MG TAB PO ONE (22:00)
[2022-04-07] MEDS ORDERED: guaiFENesin ER 600 MG TAB PO PRN (01:15)
[2022-04-07] MEDS: PIPERACILLIN/TAZOBACTAM SOD 3.375 GM in D5W MINI-BAG PLUS 50 ML IV SCH (01:59)
[2022-04-07 05:13] VITALS: BP 149/90
[2022-04-07 06:17] LABS: HEMATOCRIT 29.1 % (36.0-47.0); HEMOGLOBIN 8.8 g/dl (12.0-15.5); MEAN CORPUSCULAR HEMOGLOBIN 24.9 pg (27.0-33.0); MEAN CORPUSCULAR HGB CONC 30.2 g/dl (32.0-36.5); MEAN CORPUSCULAR VOLUME 82.4 fl (80.0-96.0); PLATELET COUNT, AUTOMATED 124 10^3/uL (150-450); RED BLOOD COUNT 3.53 10^6/uL (4.00-5.40); WHITE BLOOD COUNT 5.3 10^3/uL (4.0-10.0)
[2022-04-07] MEDS: LEVALBUTEROL 1.25 MG/0.5 ML CONCENTRATE NEB NEB PRN ×4 (06:21→21:43)
[2022-04-07 06:55] LABS: ALBUMIN 2.7 GM/DL (3.2-5.2); BILIRUBIN,TOTAL 1.6 MG/DL (0.2-1.0); CALCIUM LEVEL 7.9 MG/DL (8.5-10.1); CREATININE FOR GFR 1.46 MG/DL (0.55-1.30); MAGNESIUM LEVEL 2.6 MG/DL (1.8-2.4); POTASSIUM SERUM 3.7 MEQ/L (3.5-5.1); TOTAL PROTEIN 6.2 GM/DL (6.4-8.2)
[2022-04-07] MEDS: INSULIN LISPRO (NovoLOG) PER UNIT SC SCH ×4 (07:30→21:00)
[2022-04-07] MEDS: CHLORHEXIDINE GLUCONATE 0.12 % 15ML UDC (PERIDEX ORAL RINSE) MT SCH ×2 (09:00→21:25)
[2022-04-07] MEDS: MULTIVITAMINS/MINERALS THERAP 1 TAB PO SCH (09:20)
[2022-04-07] MEDS: OMEPRAZOLE 20MG CAP PO SCH ×2 (09:21→21:24)
[2022-04-07] MEDS: FOLIC ACID 1MG TAB PO SCH (09:21)
[2022-04-07] MEDS: THIAMINE 100 MG TAB PO SCH ×2 (09:21→21:24)
[2022-04-07 09:31] VITALS: BP 160/97
[2022-04-07] MEDS: IPRATROPIUM 0.02% SOLN 0.5MG 2.5ML NEB INH PRN ×3 (11:49→21:43)
[2022-04-07] MEDS: amLODIPine 5 MG TAB PO SCH (13:47)
[2022-04-07 14:00] VITALS: BP_SYST 140; BP_SYST 165; BP_DIAS 101; BP_DIAS 72
[2022-04-07] MEDS ORDERED: ACETAMINOPHEN TAB 650MG DOSE (2X325MG) PO PRN (14:10)
[2022-04-07 15:58] VITALS: BP 142/94
[2022-04-07] MEDS: ENOXAPARIN 40MG/0.4ML SYRINGE (J1650 PER 10MG) SC SCH (21:25)
[2022-04-07 22:00] VITALS: BP 138/85
[2022-04-07] MEDS ORDERED: LORazepam 0.5 MG TAB PO PRN (22:05)
[2022-04-07 22:42] VITALS: BP 143/84
[2022-04-08] MEDS: IPRATROPIUM 0.02% SOLN 0.5MG 2.5ML NEB INH PRN (05:42)
[2022-04-08] MEDS: LEVALBUTEROL 1.25 MG/0.5 ML CONCENTRATE NEB NEB PRN (05:42)
[2022-04-08 06:00] VITALS: BP 158/86
[2022-04-08 06:34] LABS: HEMATOCRIT 27.9 % (36.0-47.0); HEMOGLOBIN 8.5 g/dl (12.0-15.5); MEAN CORPUSCULAR HEMOGLOBIN 24.9 pg (27.0-33.0); MEAN CORPUSCULAR HGB CONC 30.5 g/dl (32.0-36.5); MEAN CORPUSCULAR VOLUME 81.8 fl (80.0-96.0); PLATELET COUNT, AUTOMATED 117 10^3/uL (150-450); RED BLOOD COUNT 3.41 10^6/uL (4.00-5.40); WHITE BLOOD COUNT 5.4 10^3/uL (4.0-10.0)
[2022-04-08 07:20] LABS: ALBUMIN 2.8 GM/DL (3.2-5.2); CALCIUM LEVEL 8.3 MG/DL (8.5-10.1); CREATININE FOR GFR 1.12 MG/DL (0.55-1.30); MAGNESIUM LEVEL 2.3 MG/DL (1.8-2.4); POTASSIUM SERUM 3.3 MEQ/L (3.5-5.1); TOTAL PROTEIN 6.5 GM/DL (6.4-8.2)
[2022-04-08] MEDS: IPRATROPIUM 0.02% SOLN 0.5MG 2.5ML NEB INH SCH ×3 (07:29→15:34)
[2022-04-08] MEDS: LEVALBUTEROL 1.25 MG/0.5 ML CONCENTRATE NEB NEB SCH ×3 (07:29→15:34)
[2022-04-08 07:30] VITALS: BP 140/74
[2022-04-08] MEDS ORDERED: ADVAIR HFA 115/21MCG INHALER INH SCH (08:00)
[2022-04-08] MEDS ORDERED: POTASSIUM CHLORIDE 10MEQ SR TABLET PO ONE (08:00)
[2022-04-08] MEDS: OMEPRAZOLE 20MG CAP PO SCH (08:14)
[2022-04-08] MEDS: THIAMINE 100 MG TAB PO SCH (08:14)
[2022-04-08] MEDS: INSULIN LISPRO (NovoLOG) PER UNIT SC SCH ×3 (08:14→17:36)
[2022-04-08 08:15] VITALS: BP 157/88
[2022-04-08] MEDS: amLODIPine 5 MG TAB PO SCH (08:15)
[2022-04-08] MEDS: MULTIVITAMINS/MINERALS THERAP 1 TAB PO SCH (08:15)
[2022-04-08] MEDS: FOLIC ACID 1MG TAB PO SCH (08:15)
[2022-04-08] MEDS: CHLORHEXIDINE GLUCONATE 0.12 % 15ML UDC (PERIDEX ORAL RINSE) MT SCH (09:00)
[2022-04-08] MEDS ORDERED: FOLI1TAB11 PO (11:11)
[2022-04-08] MEDS ORDERED: THIA100TA PO (11:11)
[2022-04-08] MEDS ORDERED: AMLO1TAB24 PO (11:11)
[2022-04-08] MEDS ORDERED: VITMTA PO (11:11)
[2022-04-08] MEDS ORDERED: ADVA115A INH (11:11)
[2022-04-08 14:00] VITALS: BP 152/98
[2022-04-08] MEDS ORDERED: AUGMENTIN 875 MG TAB PO SCH (14:00)
[2022-04-08] MEDS ORDERED: DOXYCYCLINE HYCLATE 100MG TABLET PO SCH (14:00)
[2022-04-08] MEDS ORDERED: AMOX875T2 PO (15:50)
[2022-04-08] MEDS ORDERED: DOXY100T PO (15:50)
== END 2022-04-08 18:45 | DRG 812 ==
LOC: EDBD 15:17 → M ED 15:17 → M ICU 17:20 → ENRESERV 18:00 → M MSPAV 04-06 17:50
PROVIDERS: ADMIT Internal Medicine Pulmonary Disease; ATTEND Internal Medicine
PROC: 0BH17EZ Insertion of Endotracheal Airway into Trachea, Via Natural or Artificial Opening (ICD-10-PCS; principal; 2022-04-04)
PROC: 02HV33Z Insertion of Infusion Device into Superior Vena Cava, Percutaneous Approach (ICD-10-PCS; 2022-04-04)
PROC: B246ZZZ Ultrasonography of Right and Left Heart (ICD-10-PCS; 2022-04-04)
PROC: 5A1945Z Respiratory Ventilation, 24-96 Consecutive Hours (ICD-10-PCS; 2022-04-04)
DX: T43.212A Poisoning by selective serotonin and norepinephrine reuptake inhibitors, intentional self-harm, initial encounter (principal); F31.9 Bipolar disorder, unspecified; T43.502A Poisoning by unspecified antipsychotics and neuroleptics, intentional self-harm, initial encounter; T14.91XA Suicide attempt, initial encounter; Z90.79 Acquired absence of other genital organ(s); Z88.5 Allergy status to narcotic agent; J96.00 Acute respiratory failure, unspecified whether with hypoxia or hypercapnia; T51.8X2A Toxic effect of other alcohols, intentional self-harm, initial encounter; F10.121 Alcohol abuse with intoxication delirium; R57.1 Hypovolemic shock; Z20.822 Contact with and (suspected) exposure to COVID-19; Z79.899 Other long term (current) drug therapy; I95.9 Hypotension, unspecified; R00.0 Tachycardia, unspecified; D64.9 Anemia, unspecified; K83.1 Obstruction of bile duct; N17.9 Acute kidney failure, unspecified; E87.2 Acidosis; J44.9 Chronic obstructive pulmonary disease, unspecified; E87.6 Hypokalemia; E11.9 Type 2 diabetes mellitus without complications; K21.9 Gastro-esophageal reflux disease without esophagitis; I82.611 Acute embolism and thrombosis of superficial veins of right upper extremity; R16.1 Splenomegaly, not elsewhere classified; Z88.6 Allergy status to analgesic agent; Y92.009 Unspecified place in unspecified non-institutional (private) residence as the place of occurrence of the external cause

== ENCOUNTER 2022-04-08 14:58 | Inpatient (IN) | payer MEDICAID, OTHER ==
[~2022-04-08] VITALS: Ht 162.6 cm; Wt 80.2 kg
[~2022-04-08 14:58] MED LIST changes: +ADVA115A INH; +AMLO1TAB24 PO; +DULA3PEN SQ; +FOLI1TAB11 PO; +HYDR-3363 PO; +OMEP40CA5 PO; +PATIENT COMMENT; +QUET50TA4 PO; +THIA100TA PO; +VENL150C43 PO; +VENL75CA47 PO; +VITMTA PO; +VIVI380I INJ
[2022-04-08] MEDS ORDERED: DOXY100T PO (15:50)
[2022-04-08] MEDS ORDERED: AMOX875T2 PO (15:50)
[2022-04-08] MEDS ORDERED: MOM 30ML SUSPENSION UDC PO PRN (16:30)
[2022-04-08] MEDS ORDERED: LORazepam 2 MG TAB PO PRN (16:30)
[2022-04-08] MEDS ORDERED: DEXTROSE 50% 50 ML SYRINGE IV PRN (16:30)
[2022-04-08] MEDS ORDERED: GLUCAGON INJ 1MG VIAL SC PRN (16:30)
[2022-04-08] MEDS ORDERED: GLUCOSE 4GM CHEW TABLET PO PRN (16:30)
[2022-04-08] MEDS ORDERED: MAALOX 30 ML SUSP *UDC PO PRN (16:30)
[2022-04-08] MEDS ORDERED: HOME MED LIST COMPLETE! XX SCH (17:20)
[2022-04-08] MEDS: INSULIN LISPRO (NovoLOG) PER UNIT SC SCH ×2 (17:30→21:00)
[2022-04-08 20:29] VITALS: BP 164/98
[2022-04-08 20:47] VITALS: BP 164/98
[2022-04-08] MEDS: AUGMENTIN 875 MG TAB PO SCH (20:57)
[2022-04-08] MEDS: DOXYCYCLINE HYCLATE 100MG TABLET PO SCH (20:57)
[2022-04-08] MEDS: ADVAIR HFA 115/21MCG INHALER INH SCH (20:57)
[2022-04-08] MEDS: THIAMINE 100 MG TAB PO SCH (20:58)
[2022-04-09] MEDS ORDERED: diazePAM 5MG TABLET PO ONE (02:00)
[2022-04-09 05:31] VITALS: BP 118/81
[2022-04-09] MEDS: INSULIN LISPRO (NovoLOG) PER UNIT SC SCH ×4 (06:34→19:56)
[2022-04-09 06:38] VITALS: BP 118/81
[2022-04-09] MEDS: THIAMINE 100 MG TAB PO SCH ×2 (09:00→20:01)
[2022-04-09] MEDS: DOXYCYCLINE HYCLATE 100MG TABLET PO SCH (09:00)
[2022-04-09] MEDS: OMEPRAZOLE 20MG CAP PO SCH (09:00)
[2022-04-09] MEDS: AUGMENTIN 875 MG TAB PO SCH (09:00)
[2022-04-09] MEDS ORDERED: amLODIPine 5 MG TAB PO SCH (09:00)
[2022-04-09] MEDS: FOLIC ACID 1MG TAB PO SCH (09:00)
[2022-04-09] MEDS: MULTIVITAMINS/MINERALS THERAP 1 TAB PO SCH (09:00)
[2022-04-09] MEDS: ADVAIR HFA 115/21MCG INHALER INH SCH ×2 (10:46→20:01)
[2022-04-09] MEDS: busPIRone 10 MG TAB PO SCH ×2 (12:27→20:01)
[2022-04-09] MEDS: VENLAFAXINE **XR** 75MG CAPSULE PO SCH (12:28)
[2022-04-09] MEDS ORDERED: IPRATROPIUM 0.5MG/ALBUTEROL 2.5MG INH SOL UD 3ML (DUONEB) NEB PRN (13:15)
[2022-04-09 14:00] VITALS: BP 118/81
[2022-04-09] MEDS: BENZONATATE 100MG CAPSULE PO PRN ×2 (14:00→22:51)
[2022-04-09] MEDS: IPRATROPIUM 0.5MG/ALBUTEROL 2.5MG INH SOL UD 3ML (DUONEB) NEB SCH ×2 (14:00→19:44)
[2022-04-09] MEDS: traMADol 50 MG TAB PO PRN ×2 (14:03→22:52)
[2022-04-09] MEDS ORDERED: FUROSEMIDE 40 MG TAB PO ONE (14:05)
[2022-04-09] MEDS: LACTOBACILLUS ACIDOPHILUS CAP (BACID) PO SCH ×2 (14:56→20:01)
[2022-04-09] MEDS: LevoFLOXacin 500 MG TABLET PO SCH (14:56)
[2022-04-09] MEDS: predniSONE 10 MG TAB PO SCH (14:57)
[2022-04-09 19:16] VITALS: BP 176/86
[2022-04-09] MEDS ORDERED: amLODIPine 5 MG TAB PO ONE (19:30)
[2022-04-09 19:44] VITALS: BP 176/86
[2022-04-09] MEDS ORDERED: QUEtiapine FUMARATE 100 MG TAB PO SCH (21:00)
[2022-04-09 22:00] VITALS: BP 129/74
[2022-04-10] MEDS: IPRATROPIUM 0.5MG/ALBUTEROL 2.5MG INH SOL UD 3ML (DUONEB) NEB SCH ×4 (02:00→20:45)
[2022-04-10] MEDS: LevoFLOXacin 500 MG TABLET PO SCH (05:06)
[2022-04-10 06:00] VITALS: BP 126/81
[2022-04-10] MEDS ORDERED: diphenhydrAMINE 50MG CAP PO ONE (06:00)
[2022-04-10] MEDS: LACTOBACILLUS ACIDOPHILUS CAP (BACID) PO SCH ×3 (08:43→20:01)
[2022-04-10] MEDS: FOLIC ACID 1MG TAB PO SCH (08:43)
[2022-04-10] MEDS: OMEPRAZOLE 20MG CAP PO SCH (08:43)
[2022-04-10] MEDS: ADVAIR HFA 115/21MCG INHALER INH SCH ×2 (08:43→19:35)
[2022-04-10] MEDS: MULTIVITAMINS/MINERALS THERAP 1 TAB PO SCH (08:44)
[2022-04-10] MEDS: VENLAFAXINE **XR** 75MG CAPSULE PO SCH (08:44)
[2022-04-10] MEDS: THIAMINE 100 MG TAB PO SCH ×2 (08:44→20:02)
[2022-04-10] MEDS: predniSONE 10 MG TAB PO SCH (08:44)
[2022-04-10] MEDS: busPIRone 10 MG TAB PO SCH ×2 (08:44→20:02)
[2022-04-10] MEDS ORDERED: DULAGLUTIDE SQ SCH (09:00)
[2022-04-10] MEDS ORDERED: [UNRECOGNIZED DRUG - OTHER] SQ SCH (09:00)
[2022-04-10] MEDS: BENZONATATE 100MG CAPSULE PO PRN (12:07)
[2022-04-10] MEDS: FUROSEMIDE 20 MG TAB PO SCH (12:08)
[2022-04-10] MEDS: ACETAMINOPHEN TAB 650MG DOSE (2X325MG) PO PRN ×2 (12:09→22:51)
[2022-04-10] MEDS ORDERED: PILL CUTTER 1 EACH XX PRN (16:55)
[2022-04-10] MEDS: QUEtiapine FUMARATE 100 MG TAB PO SCH (20:02)
[2022-04-10 21:00] VITALS: BP 130/69
[2022-04-11] MEDS: IPRATROPIUM 0.5MG/ALBUTEROL 2.5MG INH SOL UD 3ML (DUONEB) NEB SCH ×5 (02:00→20:00)
[2022-04-11 02:58] VITALS: BP 152/79
[2022-04-11] MEDS: LevoFLOXacin 500 MG TABLET PO SCH (05:39)
[2022-04-11 06:00] VITALS: BP 156/90
[2022-04-11] MEDS: BENZONATATE 100MG CAPSULE PO PRN (07:08)
[2022-04-11] MEDS: LACTOBACILLUS ACIDOPHILUS CAP (BACID) PO SCH ×3 (08:39→20:12)
[2022-04-11] MEDS: busPIRone 10 MG TAB PO SCH ×2 (08:39→20:12)
[2022-04-11] MEDS: ADVAIR HFA 115/21MCG INHALER INH SCH ×2 (08:39→20:12)
[2022-04-11] MEDS: FOLIC ACID 1MG TAB PO SCH (08:40)
[2022-04-11] MEDS: MULTIVITAMINS/MINERALS THERAP 1 TAB PO SCH (08:40)
[2022-04-11] MEDS: OMEPRAZOLE 20MG CAP PO SCH (08:40)
[2022-04-11] MEDS: FUROSEMIDE 20 MG TAB PO SCH (08:40)
[2022-04-11] MEDS: VENLAFAXINE **XR** 75MG CAPSULE PO SCH (08:40)
[2022-04-11] MEDS: predniSONE 10 MG TAB PO SCH (08:41)
[2022-04-11] MEDS: ACETAMINOPHEN TAB 650MG DOSE (2X325MG) PO PRN (08:42)
[2022-04-11] MEDS: THIAMINE 100 MG TAB PO SCH (08:44)
[2022-04-11 20:03] VITALS: BP 148/86
[2022-04-11] MEDS: QUEtiapine FUMARATE 100 MG TAB PO SCH (20:12)
[2022-04-11 21:30] VITALS: BP 154/89
[2022-04-12] MEDS: IPRATROPIUM 0.5MG/ALBUTEROL 2.5MG INH SOL UD 3ML (DUONEB) NEB SCH ×4 (00:49→20:00)
[2022-04-12] MEDS: LevoFLOXacin 500 MG TABLET PO SCH (05:16)
[2022-04-12 06:15] VITALS: BP 144/68
[2022-04-12] MEDS: ADVAIR HFA 115/21MCG INHALER INH SCH ×2 (09:03→20:42)
[2022-04-12] MEDS: FOLIC ACID 1MG TAB PO SCH (09:04)
[2022-04-12] MEDS: MULTIVITAMINS/MINERALS THERAP 1 TAB PO SCH (09:04)
[2022-04-12] MEDS: VENLAFAXINE **XR** 75MG CAPSULE PO SCH (09:05)
[2022-04-12] MEDS: LACTOBACILLUS ACIDOPHILUS CAP (BACID) PO SCH ×3 (09:05→20:42)
[2022-04-12] MEDS: predniSONE 10 MG TAB PO SCH (09:06)
[2022-04-12] MEDS: busPIRone 10 MG TAB PO SCH ×2 (09:07→20:42)
[2022-04-12] MEDS: OMEPRAZOLE 20MG CAP PO SCH (09:08)
[2022-04-12] MEDS: BENZONATATE 100MG CAPSULE PO PRN ×2 (09:14→15:46)
[2022-04-12 15:10] LABS: CALCIUM LEVEL 8.2 MG/DL (8.5-10.1); CREATININE FOR GFR 1.05 MG/DL (0.55-1.30); GLOMERULAR FILTRATION RATE 57.1 (>51); POTASSIUM SERUM 3.4 MEQ/L (3.5-5.1)
[2022-04-12] MEDS ORDERED: POTASSIUM CHLORIDE 10MEQ SR TABLET PO ONE ×2 (15:25→21:00)
[2022-04-12] MEDS ORDERED: FUROSEMIDE 40 MG TAB PO ONE (15:25)
[2022-04-12 16:35] VITALS: BP 131/88
[2022-04-12] MEDS: QUEtiapine FUMARATE 100 MG TAB PO SCH (20:42)
[2022-04-12] MEDS: ACETAMINOPHEN TAB 650MG DOSE (2X325MG) PO PRN (21:40)
[2022-04-13] MEDS: IPRATROPIUM 0.5MG/ALBUTEROL 2.5MG INH SOL UD 3ML (DUONEB) NEB SCH ×4 (00:55→20:00)
[2022-04-13] MEDS: LevoFLOXacin 500 MG TABLET PO SCH (05:21)
[2022-04-13 06:10] VITALS: BP 147/87
[2022-04-13] MEDS: predniSONE 10 MG TAB PO SCH (07:54)
[2022-04-13] MEDS: LACTOBACILLUS ACIDOPHILUS CAP (BACID) PO SCH ×3 (07:55→20:03)
[2022-04-13] MEDS: OMEPRAZOLE 20MG CAP PO SCH (07:55)
[2022-04-13] MEDS: BENZONATATE 100MG CAPSULE PO PRN ×2 (07:55→15:27)
[2022-04-13] MEDS: ADVAIR HFA 115/21MCG INHALER INH SCH ×2 (07:55→20:02)
[2022-04-13] MEDS: VENLAFAXINE **XR** 75MG CAPSULE PO SCH (07:55)
[2022-04-13] MEDS: busPIRone 10 MG TAB PO SCH ×2 (07:55→20:03)
[2022-04-13 16:50] VITALS: BP 139/78
[2022-04-13] MEDS: QUEtiapine FUMARATE 100 MG TAB PO SCH (20:03)
[2022-04-14] MEDS: IPRATROPIUM 0.5MG/ALBUTEROL 2.5MG INH SOL UD 3ML (DUONEB) NEB SCH ×4 (01:10→20:00)
[2022-04-14] MEDS: LevoFLOXacin 500 MG TABLET PO SCH (05:30)
[2022-04-14] MEDS: BENZONATATE 100MG CAPSULE PO PRN ×2 (05:57→15:48)
[2022-04-14 07:15] VITALS: BP 142/87
[2022-04-14] MEDS: ADVAIR HFA 115/21MCG INHALER INH SCH ×2 (08:15→20:38)
[2022-04-14] MEDS: OMEPRAZOLE 20MG CAP PO SCH (08:16)
[2022-04-14] MEDS: busPIRone 10 MG TAB PO SCH ×2 (08:16→20:38)
[2022-04-14] MEDS: VENLAFAXINE **XR** 75MG CAPSULE PO SCH (08:16)
[2022-04-14] MEDS: LACTOBACILLUS ACIDOPHILUS CAP (BACID) PO SCH ×3 (08:16→20:38)
[2022-04-14] MEDS: predniSONE 10 MG TAB PO SCH (08:17)
[2022-04-14] MEDS: IBUPROFEN 600MG TAB PO PRN (09:31)
[2022-04-14 16:26] VITALS: BP 146/78
[2022-04-14] MEDS: QUEtiapine FUMARATE 100 MG TAB PO SCH (20:39)
[2022-04-15] MEDS: IPRATROPIUM 0.5MG/ALBUTEROL 2.5MG INH SOL UD 3ML (DUONEB) NEB SCH ×4 (02:00→20:00)
[2022-04-15] MEDS: LevoFLOXacin 500 MG TABLET PO SCH (05:34)
[2022-04-15 06:52] VITALS: BP 132/70
[2022-04-15] MEDS: IBUPROFEN 600MG TAB PO PRN (07:29)
[2022-04-15] MEDS: ADVAIR HFA 115/21MCG INHALER INH SCH ×2 (08:22→20:18)
[2022-04-15] MEDS: busPIRone 10 MG TAB PO SCH ×2 (08:23→20:20)
[2022-04-15] MEDS: LACTOBACILLUS ACIDOPHILUS CAP (BACID) PO SCH ×3 (08:23→20:20)
[2022-04-15] MEDS: VENLAFAXINE **XR** 75MG CAPSULE PO SCH (08:23)
[2022-04-15] MEDS: OMEPRAZOLE 20MG CAP PO SCH (08:23)
[2022-04-15] MEDS: predniSONE 10 MG TAB PO SCH (08:24)
[2022-04-15] MEDS: BENZONATATE 100MG CAPSULE PO PRN ×2 (08:25→15:09)
[2022-04-15 18:13] VITALS: BP 147/82
[2022-04-15] MEDS ORDERED: QUET50TA4 PO (18:27)
[2022-04-15] MEDS ORDERED: OMEP-173 PO (18:27)
[2022-04-15] MEDS ORDERED: BENZ-18 PO (18:27)
[2022-04-15] MEDS ORDERED: HYDR-3363 PO (18:27)
[2022-04-15] MEDS ORDERED: PRED10TA2 PO (18:27)
[2022-04-15] MEDS ORDERED: VENL150C43 PO (18:27)
[2022-04-15] MEDS ORDERED: BUSP10TA PO (18:27)
[2022-04-15] MEDS ORDERED: QUET100T2 PO (18:27)
[2022-04-15] MEDS ORDERED: IBUP-1022 PO (18:27)
[2022-04-15] MEDS: QUEtiapine FUMARATE 100 MG TAB PO SCH (20:20)
[2022-04-16] MEDS: IPRATROPIUM 0.5MG/ALBUTEROL 2.5MG INH SOL UD 3ML (DUONEB) NEB SCH (01:34)
[2022-04-16 06:38] VITALS: BP 134/73
[2022-04-16] MEDS: IBUPROFEN 600MG TAB PO PRN (07:39)
[2022-04-16] MEDS: ADVAIR HFA 115/21MCG INHALER INH SCH (07:39)
[2022-04-16] MEDS: LACTOBACILLUS ACIDOPHILUS CAP (BACID) PO SCH (08:42)
[2022-04-16] MEDS: busPIRone 10 MG TAB PO SCH (08:43)
[2022-04-16] MEDS: OMEPRAZOLE 20MG CAP PO SCH (08:43)
[2022-04-16] MEDS: VENLAFAXINE **XR** 75MG CAPSULE PO SCH (08:43)
[2022-04-16] MEDS: predniSONE 10 MG TAB PO SCH (08:43)
[2022-04-16] MEDS: BENZONATATE 100MG CAPSULE PO PRN (08:44)
== END 2022-04-16 09:48 | disposition home or self-care (01) | DRG 753 ==
LOC: M PSY 18:59
PROVIDERS: ADMIT Psychiatry & Neurology Psychiatry; ATTEND Student in an Organized Health Care Education/Training Program
DX: F31.9 Bipolar disorder, unspecified (principal); F41.1 Generalized anxiety disorder; F10.20 Alcohol dependence, uncomplicated; Z91.51 Personal history of suicidal behavior; Z63.79 Other stressful life events affecting family and household; E11.9 Type 2 diabetes mellitus without complications; J44.9 Chronic obstructive pulmonary disease, unspecified; K21.9 Gastro-esophageal reflux disease without esophagitis; I10 Essential (primary) hypertension; I82.611 Acute embolism and thrombosis of superficial veins of right upper extremity; Z63.5 Disruption of family by separation and divorce

== ENCOUNTER → 2022-06-08 | Outpatient (CLI) | payer OTHER ==
[~2022-06-08] MED LIST changes: +AMOX875T2 PO; +BENZ-18 PO; +BUSP10TA PO; +DOXY100T PO; +IBUP-1022 PO; +OMEP-173 PO; +PRED10TA2 PO; +QUET100T2 PO
[2022-06-08 14:10] LABS: HEMOGLOBIN A1c 5.7 %
[2022-06-08 14:25] LABS: BLOOD UREA NITROGEN 6 MG/DL (7-18); CALCIUM LEVEL 9.3 MG/DL (8.5-10.1); CARBON DIOXIDE LEVEL 25 MEQ/L (21-32); CHLORIDE LEVEL 103 MEQ/L (98-107); CREATININE FOR GFR 0.67 MG/DL (0.55-1.30); GLOMERULAR FILTRATION RATE > 60.0 (>51); GLUCOSE, FASTING 138 MG/DL (70-100); POTASSIUM SERUM 4.8 MEQ/L (3.5-5.1); SODIUM LEVEL 133 MEQ/L (136-145)
== END ==
LOC: M PLALAB 09:22
PROVIDERS: ATTEND Family Medicine
DX: E11.9 Type 2 diabetes mellitus without complications (principal)

== ENCOUNTER → 2022-06-30 | Outpatient (CLI) | payer OTHER, MEDICAID ==
[2022-06-30 17:45] LABS: ALBUMIN 3.5 G/DL (3.2-5.2); BILIRUBIN,DIRECT 0.2 MG/DL (<0.4); BILIRUBIN,TOTAL 0.3 MG/DL (0.3-1.2); TOTAL PROTEIN 7.5 G/DL (5.7-8.2)
== END ==
LOC: M LAB 16:20
PROVIDERS: ATTEND Otolaryngology
DX: R49.0 Dysphonia (principal)

== ENCOUNTER → 2022-08-26 | Outpatient (REF) | payer OTHER ==
[2022-08-26 13:52] LABS: HEMATOCRIT 29.3 % (36.0-47.0); HEMOGLOBIN 8.9 g/dl (12.0-15.5); MEAN CORPUSCULAR HEMOGLOBIN 25.2 pg (27.0-33.0); MEAN CORPUSCULAR HGB CONC 30.4 g/dl (32.0-36.5); PLATELET COUNT, AUTOMATED 241 10^3/uL (150-450); RED BLOOD COUNT 3.53 10^6/uL (4.00-5.40); WHITE BLOOD COUNT 5.6 10^3/uL (4.0-10.0)
[2022-08-26 14:07] LABS: INR 1.1; PROTHROMBIN TIME 14.4 SECONDS (12.5-14.5)
[2022-08-26 14:08] LABS: PARTIAL THROMBOPLASTIN TIME 31.3 SECONDS (24.8-34.2)
[2022-08-26 14:12] LABS: HEMOGLOBIN A1c 5.2 % (4.0-6.0)
[2022-08-26 14:21] LABS: ALBUMIN 3.7 G/DL (3.2-5.2); ALKALINE PHOSPHATASE 106 U/L (46-116); ALT/SGPT 19 U/L (7.0-40); AST/SGOT 88 U/L (<34); BILIRUBIN,TOTAL 0.5 MG/DL (0.3-1.2); BLOOD UREA NITROGEN < 5 MG/DL (9-23); CALCIUM LEVEL 8.9 MG/DL (8.3-10.6); CARBON DIOXIDE LEVEL 24 MMOL/L (20-31); CHLORIDE LEVEL 101 MMOL/L (98-107); CHOLESTEROL LEVEL 125 MG/DL (<200); CHOLESTEROL RISK RATIO 3.06 (<5); CREATININE FOR GFR 0.46 MG/DL (0.55-1.30); GLOMERULAR FILTRATION RATE > 60.0 (>45); GLUCOSE, FASTING 114 MG/DL (74-106); HDL CHOLESTEROL 40.8 MG/DL (>40); LDL CHOLESTEROL 66.4 MG/DL (<100); NON-HDL-C 84 MG/DL; POTASSIUM SERUM 3.9 MMOL/L (3.5-5.1); SODIUM LEVEL 134 MMOL/L (136-145); TOTAL PROTEIN 7.8 G/DL (5.7-8.2); TRIGLYCERIDES LEVEL 89 MG/DL (<150)
== END ==
LOC: M SFHCADAM 10:36
PROVIDERS: ATTEND Family Medicine
DX: Z01.818 Encounter for other preprocedural examination (principal); E11.9 Type 2 diabetes mellitus without complications; F31.9 Bipolar disorder, unspecified; F10.20 Alcohol dependence, uncomplicated; K70.0 Alcoholic fatty liver

== ENCOUNTER → 2022-11-16 | Outpatient (REF) | payer OTHER ==
[2022-11-16 16:37] LABS: HEMATOCRIT 29.9 % (36.0-47.0); HEMOGLOBIN 8.8 g/dl (12.0-15.5); MEAN CORPUSCULAR HEMOGLOBIN 23.1 pg (27.0-33.0); MEAN CORPUSCULAR HGB CONC 29.4 g/dl (32.0-36.5); MEAN CORPUSCULAR VOLUME 78.5 fl (80.0-96.0); PLATELET COUNT, AUTOMATED 241 10^3/uL (150-450); RED BLOOD COUNT 3.81 10^6/uL (4.00-5.40); WHITE BLOOD COUNT 7.1 10^3/uL (4.0-10.0)
[2022-11-16 16:54] LABS: CPK CREATINE PHOSPHOKINASE 60 U/L (34-145)
[2022-11-16 16:56] LABS: IRON (FE) 10 UG/DL (50-170); PERCENT SATURATION 2.1 % (13.2-45.0); TOTAL IRON BINDING CAPACITY 468 UG/DL (250-425)
[2022-11-16 16:57] LABS: C REACTIVE PROTEIN QUANTITATIV < 0.40 MG/DL (<1.0)
[2022-11-16 16:58] LABS: FERRITIN 10.1 NG/ML (7.3-270.7)
[2022-11-16 18:22] LABS: ALBUMIN 3.7 G/DL (3.2-5.2); ALKALINE PHOSPHATASE 119 U/L (46-116); ALT/SGPT 14 U/L (7.0-40); AST/SGOT 68 U/L (<34); BILIRUBIN,TOTAL 0.5 MG/DL (0.3-1.2); BLOOD UREA NITROGEN 8 MG/DL (9-23); CALCIUM LEVEL 8.7 MG/DL (8.3-10.6); CARBON DIOXIDE LEVEL 24 MMOL/L (20-31); CHLORIDE LEVEL 105 MMOL/L (98-107); CREATININE FOR GFR 0.44 MG/DL (0.55-1.30); GLOMERULAR FILTRATION RATE > 60.0 (>45); GLUCOSE, FASTING 110 MG/DL (74-106); POTASSIUM SERUM 4.7 MMOL/L (3.5-5.1); SODIUM LEVEL 134 MMOL/L (136-145); TOTAL PROTEIN 7.7 G/DL (5.7-8.2)
[2022-11-16 18:24] LABS: HEMOGLOBIN A1c 5.7 % (4.0-6.0)
[2022-11-18 20:08] LABS: ALDOLASE 4.4 U/L (3.3-10.3)
== END ==
LOC: M SFHCADAM 09:52
PROVIDERS: ATTEND Family Medicine
DX: D64.9 Anemia, unspecified (principal); R29.898 Other symptoms and signs involving the musculoskeletal system; M21.371 Foot drop, right foot; M21.372 Foot drop, left foot; E11.9 Type 2 diabetes mellitus without complications

== ENCOUNTER → 2022-12-28 | Outpatient (CLI) | payer OTHER | LOC: M ADAMS 10:13 | PROVIDERS: ATTEND Family Medicine | DX: R05.3 Chronic cough (principal); T17.908A Unspecified foreign body in respiratory tract, part unspecified causing other injury, initial encounter; R91.8 Other nonspecific abnormal finding of lung field ==

== ENCOUNTER → 2022-12-28 | Outpatient (REF) | payer OTHER ==
[2022-12-28 13:02] LABS: HEMATOCRIT 39.6 % (36.0-47.0); HEMOGLOBIN 12.5 g/dl (12.0-15.5); MEAN CORPUSCULAR HEMOGLOBIN 27.8 pg (27.0-33.0); MEAN CORPUSCULAR HGB CONC 31.6 g/dl (32.0-36.5); MEAN CORPUSCULAR VOLUME 88.2 fl (80.0-96.0); PLATELET COUNT, AUTOMATED 161 10^3/uL (150-450); RED BLOOD COUNT 4.49 10^6/uL (4.00-5.40); WHITE BLOOD COUNT 5.9 10^3/uL (4.0-10.0)
[2022-12-28 13:23] LABS: IRON (FE) 163 UG/DL (50-170); PERCENT SATURATION 39.5 % (13.2-45.0); TOTAL IRON BINDING CAPACITY 413 UG/DL (250-425)
[2022-12-28 13:25] LABS: FERRITIN 52.5 NG/ML (7.3-270.7)
[2022-12-28 13:27] LABS: ALBUMIN 3.7 G/DL (3.2-5.2); ALKALINE PHOSPHATASE 119 U/L (46-116); ALT/SGPT 17 U/L (7.0-40); AST/SGOT 79 U/L (<34); BILIRUBIN,TOTAL 0.7 MG/DL (0.3-1.2); BLOOD UREA NITROGEN < 5 MG/DL (9-23); CALCIUM LEVEL 8.9 MG/DL (8.3-10.6); CARBON DIOXIDE LEVEL 27 MMOL/L (20-31); CHLORIDE LEVEL 100 MMOL/L (98-107); CREATININE FOR GFR 0.44 MG/DL (0.55-1.30); GLOMERULAR FILTRATION RATE > 60.0 (>45); GLUCOSE, FASTING 99 MG/DL (74-106); POTASSIUM SERUM 3.9 MMOL/L (3.5-5.1); SODIUM LEVEL 135 MMOL/L (136-145); TOTAL PROTEIN 7.8 G/DL (5.7-8.2)
[2022-12-28 13:28] LABS: HEMOGLOBIN A1c 4.8 % (4.0-6.0)
[2022-12-30 02:07] LABS: COPPER PLASMA 135 ug/dL (80-158); ZINC PLASMA 118 ug/dL (44-115)
== END ==
LOC: M SFHCADAM 08:43
PROVIDERS: ATTEND Family Medicine
DX: D50.8 Other iron deficiency anemias (principal); E60 Dietary zinc deficiency; E11.9 Type 2 diabetes mellitus without complications; Z98.84 Bariatric surgery status; F10.20 Alcohol dependence, uncomplicated

== ENCOUNTER → 2023-01-24 | Outpatient (CLI) | payer OTHER | LOC: M ADAMS 12:33 | PROVIDERS: ATTEND Family Medicine | DX: J18.9 Pneumonia, unspecified organism (principal) ==

== ENCOUNTER → 2023-01-24 | Outpatient (REF) | payer OTHER ==
[2023-01-24 17:51] LABS: BASO % 0.7 % (0.0-1.0); EOS # 0.2 10^3/uL (0.0-0.5); EOS % 3.1 % (0.0-3.0); HEMATOCRIT 40.8 % (36.0-47.0); HEMOGLOBIN 13.2 g/dl (12.0-15.5); LYMPH # 1.6 10^3/uL (1.5-5.0); MEAN CORPUSCULAR HEMOGLOBIN 30.3 pg (27.0-33.0); MEAN CORPUSCULAR HGB CONC 32.4 g/dl (32.0-36.5); MEAN CORPUSCULAR VOLUME 93.8 fl (80.0-96.0); MONO # 0.5 10^3/uL (0.0-0.8); MONO % 9.5 % (2.0-8.0); NEUTROPHILS # 3.2 10^3/uL (1.5-8.5); NEUTROPHILS % 57.5 % (36.0-66.0); PLATELET COUNT, AUTOMATED 150 10^3/uL (150-450); RED BLOOD COUNT 4.35 10^6/uL (4.00-5.40); WHITE BLOOD COUNT 5.5 10^3/uL (4.0-10.0)
[2023-01-24 17:59] LABS: ALBUMIN 3.9 G/DL (3.2-5.2); ALKALINE PHOSPHATASE 135 U/L (46-116); ALT/SGPT 19 U/L (7.0-40); AST/SGOT 88 U/L (<34); BILIRUBIN,TOTAL 0.6 MG/DL (0.3-1.2); BLOOD UREA NITROGEN 6 MG/DL (9-23); CALCIUM LEVEL 8.8 MG/DL (8.3-10.6); CARBON DIOXIDE LEVEL 27 MMOL/L (20-31); CHLORIDE LEVEL 104 MMOL/L (98-107); CREATININE FOR GFR 0.44 MG/DL (0.55-1.30); GLOMERULAR FILTRATION RATE > 60.0 (>45); GLUCOSE, FASTING 110 MG/DL (74-106); POTASSIUM SERUM 4.6 MMOL/L (3.5-5.1); SODIUM LEVEL 136 MMOL/L (136-145); TOTAL PROTEIN 7.7 G/DL (5.7-8.2)
== END ==
LOC: M SFHCADAM 12:32
PROVIDERS: ATTEND Family Medicine
DX: J18.9 Pneumonia, unspecified organism (principal)

== ENCOUNTER → 2023-01-31 | Outpatient (CLI) | payer OTHER | LOC: M PLAIMG 08:43 | PROVIDERS: ATTEND Family Medicine | DX: J69.0 Pneumonitis due to inhalation of food and vomit (principal); K70.11 Alcoholic hepatitis with ascites ==

== ENCOUNTER → 2023-02-01 | Outpatient (REF) | payer OTHER ==
[2023-02-01 17:14] LABS: C REACTIVE PROTEIN QUANTITATIV < 0.40 MG/DL (<1.0)
[2023-02-01 17:16] LABS: RHEUMATOID FACTOR QUANT < 3.5 IU/ML (<14)
[2023-02-06 03:10] LABS: ANA (HEP2) Positive (.); SSA SJOGRENS A <0.2 AI (0.0-0.9); SSB SJOGRENS B <0.2 AI (0.0-0.9)
== END ==
LOC: M SFHCADAM 14:37
PROVIDERS: ATTEND Family Medicine
DX: J84.10 Pulmonary fibrosis, unspecified (principal)

== ENCOUNTER → 2023-03-23 | Outpatient (CLI) | payer OTHER | LOC: M CARPUL 13:45 | PROVIDERS: ATTEND Family Medicine | DX: J84.10 Pulmonary fibrosis, unspecified (principal) ==

== ENCOUNTER → 2023-06-29 | Outpatient (REF) | payer OTHER ==
[2023-06-29 14:01] LABS: HEMATOCRIT 41.9 % (36.0-47.0); HEMOGLOBIN 13.6 g/dl (12.0-15.5); MEAN CORPUSCULAR HEMOGLOBIN 30.9 pg (27.0-33.0); MEAN CORPUSCULAR HGB CONC 32.5 g/dl (32.0-36.5); MEAN CORPUSCULAR VOLUME 95.2 fl (80.0-96.0); PLATELET COUNT, AUTOMATED 159 10^3/uL (150-450); WHITE BLOOD COUNT 7.9 10^3/uL (4.0-10.0)
[2023-06-29 14:04] LABS: ALBUMIN 3.5 G/DL (3.2-5.2); ALKALINE PHOSPHATASE 164 U/L (46-116); ALT/SGPT 12 U/L (7.0-40); AST/SGOT 63 U/L (<34); BILIRUBIN,TOTAL 1.2 MG/DL (0.3-1.2); BLOOD UREA NITROGEN 9 MG/DL (9-23); CARBON DIOXIDE LEVEL 27 MMOL/L (20-31); CHLORIDE LEVEL 103 MMOL/L (98-107); GLOMERULAR FILTRATION RATE > 60.0 (>45); GLUCOSE, FASTING 181 MG/DL (74-106); IRON (FE) 112 UG/DL (50-170); PERCENT SATURATION 30.4 % (13.2-45.0); POTASSIUM SERUM 4.8 MMOL/L (3.5-5.1); SODIUM LEVEL 138 MMOL/L (136-145); TOTAL IRON BINDING CAPACITY 368 UG/DL (250-425); TOTAL PROTEIN 7.7 G/DL (5.7-8.2)
[2023-06-29 14:08] LABS: FERRITIN 24.9 NG/ML (7.3-270.7)
== END ==
LOC: M SFHCADAM 09:10
PROVIDERS: ATTEND Physician Assistant
DX: K70.30 Alcoholic cirrhosis of liver without ascites (principal); D50.8 Other iron deficiency anemias; E11.9 Type 2 diabetes mellitus without complications

== ENCOUNTER → 2023-07-18 | Outpatient (CLI) | payer OTHER | LOC: M PLAIMG 07:37 | PROVIDERS: ATTEND Orthopaedic Surgery | DX: M16.12 Unilateral primary osteoarthritis, left hip (principal) ==

== ENCOUNTER → 2023-08-30 | Outpatient (CLI) | payer OTHER ==
[2023-08-30 11:50] LABS: PLATELET COUNT, AUTOMATED 196 10^3/uL (150-450)
[2023-08-30 12:13] LABS: INR 1.23; PROTHROMBIN TIME 15.2 SECONDS (12.5-14.5)
[2023-08-30 12:14] LABS: PARTIAL THROMBOPLASTIN TIME 33.2 SECONDS (24.8-34.2)
== END ==
LOC: M PLALAB 10:17
PROVIDERS: ATTEND Physician Assistant
DX: Z01.818 Encounter for other preprocedural examination (principal)

== ENCOUNTER → 2023-09-02 | Outpatient (REF) | payer OTHER ==
[2023-09-02 11:45] LABS: COLLAGEN EPINEPHRINE 94 SECONDS (74-162)
== END ==
LOC: M LABDRAWP 11:09
PROVIDERS: ATTEND Physician Assistant
DX: Z01.818 Encounter for other preprocedural examination (principal)

== ENCOUNTER → 2024-04-06 | Outpatient (CLI) | payer OTHER | LOC: M RAD 08:58 | PROVIDERS: ATTEND Internal Medicine Pulmonary Disease | DX: Z12.2 Encounter for screening for malignant neoplasm of respiratory organs (principal); F17.218 Nicotine dependence, cigarettes, with other nicotine-induced disorders; R91.1 Solitary pulmonary nodule; R91.8 Other nonspecific abnormal finding of lung field ==

== ENCOUNTER → 2024-08-28 | Outpatient (REF) | payer OTHER ==
[2024-08-28 13:01] LABS: HEMATOCRIT 36.7 % (36.0-47.0); HEMOGLOBIN 12.8 g/dl (12.0-15.5); MEAN CORPUSCULAR HEMOGLOBIN 34.7 pg (27.0-33.0); MEAN CORPUSCULAR HGB CONC 34.9 g/dl (32.0-36.5); MEAN CORPUSCULAR VOLUME 99.5 fl (80.0-96.0); RED BLOOD COUNT 3.69 10^6/uL (4.00-5.40); WHITE BLOOD COUNT 7.3 10^3/uL (4.0-10.0)
[2024-08-28 13:20] LABS: INR 1.31; PROTHROMBIN TIME 16.6 SECONDS (12.5-14.5)
[2024-08-28 13:24] LABS: FERRITIN 535.7 NG/ML (7.3-270.7)
[2024-08-28 13:25] LABS: FOLATE 6.86 NG/ML (>5.4)
[2024-08-28 13:26] LABS: TOTAL 25(OH) VITAMIN D 73.1 NG/ML (20.0-100.0)
[2024-08-28 13:29] LABS: ALBUMIN 2.7 G/DL (3.2-5.2); ALKALINE PHOSPHATASE 169 U/L (35-104); ALT/SGPT 43 U/L (7.0-40); AST/SGOT 248 U/L (<34); BILIRUBIN,TOTAL 9.4 MG/DL (0.3-1.2); BLOOD UREA NITROGEN < 5 MG/DL (9-23); CALCIUM LEVEL 8.6 MG/DL (8.3-10.6); CARBON DIOXIDE LEVEL 25 MMOL/L (20-31); CHLORIDE LEVEL 104 MMOL/L (98-107); CHOLESTEROL LEVEL 124 MG/DL (<200); CHOLESTEROL RISK RATIO 24.31 (<5); CREATININE FOR GFR 0.47 MG/DL (0.55-1.30); GLOMERULAR FILTRATION RATE > 60.0 (>45); GLUCOSE, FASTING 133 MG/DL (74-106); HDL CHOLESTEROL 5.1 MG/DL (>40); LDL CHOLESTEROL 89.7 MG/DL (<100); NON-HDL-C 118.9 MG/DL; POTASSIUM SERUM 4.6 MMOL/L (3.5-5.1); SODIUM LEVEL 137 MMOL/L (136-145); TOTAL PROTEIN 7.4 G/DL (5.7-8.2); TRIGLYCERIDES LEVEL 146 MG/DL (<150); VITAMIN B12 LEVEL 1336 PG/ML (211-911)
[2024-08-28 13:39] LABS: HEMOGLOBIN A1c 4.6 % (4.0-6.0)
== END ==
LOC: M SFHCADAM 10:01
PROVIDERS: ATTEND Family Medicine
DX: E11.9 Type 2 diabetes mellitus without complications (principal); K70.30 Alcoholic cirrhosis of liver without ascites; Z98.84 Bariatric surgery status

== ENCOUNTER → 2024-09-25 | Outpatient (REF) | payer OTHER ==
[2024-09-25 12:46] LABS: INR 1.49; PROTHROMBIN TIME 18.3 SECONDS (12.5-14.5)
[2024-09-25 12:51] LABS: HEMATOCRIT 38.9 % (36.0-47.0); HEMOGLOBIN 13.2 g/dl (12.0-15.5); MEAN CORPUSCULAR HEMOGLOBIN 34.1 pg (27.0-33.0); MEAN CORPUSCULAR HGB CONC 33.9 g/dl (32.0-36.5); MEAN CORPUSCULAR VOLUME 100.5 fl (80.0-96.0); PLATELET COUNT, AUTOMATED 118 10^3/uL (150-450); RED BLOOD COUNT 3.87 10^6/uL (4.00-5.40); WHITE BLOOD COUNT 7.6 10^3/uL (4.0-10.0)
[2024-09-25 13:13] LABS: ALBUMIN 2.2 G/DL (3.2-5.2); ALKALINE PHOSPHATASE 153 U/L (35-104); ALT/SGPT 34 U/L (7.0-40); AST/SGOT 125 U/L (<34); BILIRUBIN,TOTAL 7.4 MG/DL (0.3-1.2); BLOOD UREA NITROGEN < 5 MG/DL (9-23); CALCIUM LEVEL 8.7 MG/DL (8.3-10.6); CARBON DIOXIDE LEVEL 25 MMOL/L (20-31); CHLORIDE LEVEL 105 MMOL/L (98-107); CREATININE FOR GFR 0.57 MG/DL (0.55-1.30); GLOMERULAR FILTRATION RATE > 60.0 (>45); GLUCOSE, FASTING 146 MG/DL (74-106); POTASSIUM SERUM 4.2 MMOL/L (3.5-5.1); SODIUM LEVEL 135 MMOL/L (136-145); TOTAL PROTEIN 7.3 G/DL (5.7-8.2)
== END ==
LOC: M SFHCADAM 09:45
PROVIDERS: ATTEND Family Medicine
DX: K70.30 Alcoholic cirrhosis of liver without ascites (principal)

== ENCOUNTER → 2024-10-17 | Outpatient (REF) | payer OTHER ==
[2024-10-17 12:46] LABS: HEMATOCRIT 34.7 % (36.0-47.0); HEMOGLOBIN 12.1 g/dl (12.0-15.5); MEAN CORPUSCULAR HEMOGLOBIN 34.1 pg (27.0-33.0); MEAN CORPUSCULAR HGB CONC 34.9 g/dl (32.0-36.5); MEAN CORPUSCULAR VOLUME 97.7 fl (80.0-96.0); PLATELET COUNT, AUTOMATED 122 10^3/uL (150-450); RED BLOOD COUNT 3.55 10^6/uL (4.00-5.40); WHITE BLOOD COUNT 6.1 10^3/uL (4.0-10.0)
[2024-10-17 12:49] LABS: INR 1.71; PROTHROMBIN TIME 20.2 SECONDS (12.5-14.5)
[2024-10-17 13:06] LABS: HEMOGLOBIN A1c 4.5 % (4.0-6.0)
[2024-10-17 13:14] LABS: ALKALINE PHOSPHATASE 134 U/L (35-104); ALT/SGPT 29 U/L (7.0-40); AST/SGOT 96 U/L (<34); BILIRUBIN,TOTAL 6.7 MG/DL (0.3-1.2); BLOOD UREA NITROGEN 7 MG/DL (9-23); CALCIUM LEVEL 8.1 MG/DL (8.3-10.6); CARBON DIOXIDE LEVEL 23 MMOL/L (20-31); CHLORIDE LEVEL 101 MMOL/L (98-107); CREATININE FOR GFR 0.63 MG/DL (0.55-1.30); GLOMERULAR FILTRATION RATE > 60.0 (>45); GLUCOSE, FASTING 130 MG/DL (74-106); MAGNESIUM LEVEL 1.8 MG/DL (1.8-2.4); POTASSIUM SERUM 3.7 MMOL/L (3.5-5.1); SODIUM LEVEL 134 MMOL/L (136-145)
== END ==
LOC: M SFHCADAM 08:53
PROVIDERS: ATTEND Family Medicine
DX: K70.31 Alcoholic cirrhosis of liver with ascites (principal); E11.9 Type 2 diabetes mellitus without complications; E83.42 Hypomagnesemia

== ENCOUNTER → 2024-11-12 | Outpatient (CLI) | payer MEDICARE, OTHER ==
[2024-11-12 13:15] VITALS: TEMP 97.6
[2024-11-12 14:28] VITALS: BP 119/85; O2SAT 98
== END ==
LOC: M IRPRO 12:55
PROVIDERS: ATTEND Internal Medicine
DX: K70.31 Alcoholic cirrhosis of liver with ascites (principal)

== ENCOUNTER → 2024-11-30 | Outpatient (CLI) | payer MEDICARE, OTHER ==
[2024-11-30 13:25] VITALS: TEMP 98.3
[2024-11-30 14:55] VITALS: BP 115/68; O2SAT 94
== END ==
LOC: M IRPRO 13:10
PROVIDERS: ATTEND Internal Medicine
DX: R18.8 Other ascites (principal)